=== PATIENT | male | born 1945 | race Caucasian/White ===

== ENCOUNTER 2017-09-13 03:10 | Emergency (ER) | payer MEDICARE, MEDICAID ==
[~2017-09-13] VITALS: Ht 177.8 cm; Wt 112.0 kg
[~2017-09-13 03:10] MED LIST: ASPI-611 PO; ATI1T PO; ATOR40TA71 PO; BISA-155 PO; CLON-527 PO; DIVA-81 PO; DIVA500T7 PO; DOCU250C4 PO; DOXY100C43 PO; DULR RC; FURO40TA4 PO; GEODON IM; HYDR-569 PO; IBUP-1984 PO; LISI-600 PO; LURA80TA3 PO; MAGN400O6 PO; MULT1TAB74 PO; NYSPWD TP; OLAN-1 PO; OLAN20TA16 PO; PERP4TAB11 PO; POTA8TAB8 PO; PRED10TA PO; QUET200T PO; SIME125C87 PO; TEMA30CA5 PO
[2017-09-13] MEDS ORDERED: acetaminophen 325mg tablet PO ONE (03:20)
[2017-09-13 07:59] VITALS: BP 124/76
== END 2017-09-13 07:58 | disposition home or self-care (01) ==
LOC: ER 03:11
DX: S00.03XA Contusion of scalp, initial encounter (principal); S09.90XA Unspecified injury of head, initial encounter; R60.0 Localized edema; M25.512 Pain in left shoulder; Z88.8 Allergy status to other drugs, medicaments and biological substances; Z79.82 Long term (current) use of aspirin; Z79.899 Other long term (current) drug therapy; W19.XXXA Unspecified fall, initial encounter; Y93.89 Activity, other specified; Y92.89 Other specified places as the place of occurrence of the external cause; Y99.9 Unspecified external cause status
CPT/HCPCS: 70450; 71045; 72125; 73030; 99284

== ENCOUNTER 2017-10-14 10:45 | Inpatient (IN) | payer MEDICARE, MEDICAID ==
[~2017-10-14] VITALS: Ht 175.3 cm; Wt 110.0 kg
[2017-10-14 11:20] LABS: BASOPHILS % (AUTO) 0.2 % (0-1); EOSINOPHILS # (AUTO) 0.1 X10'3 (0-0.9); EOSINOPHILS % (AUTO) 1.3 % (0-6); HEMATOCRIT 41.7 % (42.0-52.0); HEMOGLOBIN 14.1 g/dl (14.0-17.9); LYMPHOCYTES % (AUTO) 9.8 % (21-51); MEAN CORPUSCULAR HEMOGLOBIN 30.4 PG (27.0-31.0); MEAN CORPUSCULAR HGB CONC 33.9 % (33.0-36.5); MEAN CORPUSCULAR VOLUME 89.7 FL (78-98); MEAN PLATELET VOLUME 8.9 FL (7.4-10.4); MONOCYTES # (AUTO) 1.2 X10'3 (0-0.9); MONOCYTES % (AUTO) 11.7 % (2-12); NEUTROPHILS # (AUTO) 7.6 X10'3 (1.8-7.7); PLATELET COUNT 176 X10'3 (140-440); RED BLOOD COUNT 4.65 X10'6 (4.70-6.10); RED CELL DISTRIBUTION WIDTH 15.9 % (11.5-14.5); WHITE BLOOD COUNT 9.9 X10'3 (4.5-11.0)
[2017-10-14 11:41] LABS: ALANINE AMINOTRANSFERASE 22 U/L (12-78); ALBUMIN/GLOBULIN RATIO 0.8 (1.1-1.5); ALKALINE PHOSPHATASE 63 IU/L (46-116); ANION GAP 6 (8-16); ASPARTATE AMINO TRANSFERASE 19 U/L (10-37); BILIRUBIN,TOTAL 0.4 MG/DL (0.1-1.0); BLOOD UREA NITROGEN 21 MG/DL (7-18); BUN/CREATININE RATIO 24.1 (5.4-32.0); CALCIUM 8.9 MG/DL (8.5-10.1); CHLORIDE 82 MMOL/L (99-107); CREATININE 0.87 MG/DL (0.60-1.10); GLUCOSE 79 MG/DL (70-104); POTASSIUM 3.3 MMOL/L (3.5-5.1); SODIUM 125 MMOL/L (135-145); TOTAL CARBON DIOXIDE 37.1 MMOL/L (24-32); TOTAL PROTEIN 6.8 G/DL (6.4-8.2); eGFR 87 ML/MIN
[2017-10-14] MEDS ORDERED: normal saline 1000ml 1,000 ML IV ONE (11:45)
[2017-10-14] MEDS ORDERED: magnesium Cl slow-release 64mg tablet PO PRN (13:45)
[2017-10-14] MEDS ORDERED: levoFLOXACIN-Levaquin 750MG/D5 150 ML IV ONE (13:45)
[2017-10-14] MEDS ORDERED: magnesium 2GM in 50ml NS 50 ML IV PRN (13:45)
[2017-10-14] MEDS ORDERED: magnesium 4gm in 100ml NS 100 ML IV PRN (13:45)
[2017-10-14] MEDS ORDERED: potassium Cl 40MEQ/NS 500ml 500 ML IV PRN ×2 (13:45)
[2017-10-14] MEDS ORDERED: magnesium hydroxide 30ml (MOM) UD suspension PO PRN ×2 (13:45→13:50)
[2017-10-14] MEDS ORDERED: mag hydrox/Alum hydrox/simeth 30ml oral suspension PO PRN (13:45)
[2017-10-14] MEDS ORDERED: CefTRIAXone 2gm/D5W 50ml 50 ML IV ONE (13:45)
[2017-10-14] MEDS ORDERED: acetaminophen 325mg tablet PO PRN (13:45)
[2017-10-14] MEDS ORDERED: potassium Cl 20 mEq SR tablet PO PRN (13:45)
[2017-10-14] MEDS ORDERED: HYDROcodone/acetaminophen 5mg/325mg tablet PO PRN (13:50)
[2017-10-14] MEDS: normal saline 1000ml 1,000 ML IV SCH ×2 (13:58→23:42)
[2017-10-14] MEDS ORDERED: DIVA500T2 PO (14:40)
[2017-10-14] MEDS ORDERED: QUET200T PO (14:40)
[2017-10-14] MEDS ORDERED: POTA10TA19 PO (14:40)
[2017-10-14] MEDS ORDERED: OLAN5TAB5 PO (14:40)
[2017-10-14] MEDS: potassium Cl 20 mEq SR tablet PO PRN (14:56)
[2017-10-14 15:30] VITALS: BP 85/46
[2017-10-14 16:47] LABS: PARTIAL THROMBOPLASTIN TIME 27 SECONDS (22-32)
[2017-10-14 18:00] VITALS: BP 104/65
[2017-10-14] MEDS: atorvastatin 20mg tablet PO SCH (20:32)
[2017-10-14] MEDS: nystatin 15 GM powder TP SCH (20:32)
[2017-10-14] MEDS: heparin, porcine 5000 units/ml vial SQ SCH (20:33)
[2017-10-14] MEDS: lurasidone 20mg tablet PO SCH (20:33)
[2017-10-14] MEDS: quetiapine 100mg tablet PO SCH (20:33)
[2017-10-14] MEDS: docusate sod 250mg capsule PO SCH (20:33)
[2017-10-14] MEDS: lactobacillus rhamnosus 10,000 MMU CELLS/CAPSULE PO SCH (20:34)
[2017-10-14] MEDS: divalproex sod 250mg ER (24-hour) tablet PO SCH (20:58)
[2017-10-14] MEDS: olanzapine 10mg tablet PO SCH (20:59)
[2017-10-15] VITALS (9 sets, daily range): BP systolic 87–123; BP diastolic 48–77
[2017-10-15] MEDS: normal saline 1000ml 1,000 ML IV SCH ×2 (03:23→19:42)
[2017-10-15 05:13] LABS: BASOPHILS % (AUTO) 0.7 % (0-1); EOSINOPHILS % (AUTO) 0 % (0-6); HEMATOCRIT 39.4 % (42.0-52.0); HEMOGLOBIN 13.4 g/dl (14.0-17.9); LYMPHOCYTES # (AUTO) 1.2 X10'3 (1.1-4.8); MEAN CORPUSCULAR HEMOGLOBIN 30.2 PG (27.0-31.0); MEAN CORPUSCULAR VOLUME 88.8 FL (78-98); MEAN PLATELET VOLUME 9.2 FL (7.4-10.4); MONOCYTES % (AUTO) 15.1 % (2-12); NEUTROPHILS # (AUTO) 4.6 X10'3 (1.8-7.7); NEUTROPHILS % (AUTO) 66.2 % (42-75); PLATELET COUNT 189 X10'3 (140-440); RED BLOOD COUNT 4.44 X10'6 (4.70-6.10); RED CELL DISTRIBUTION WIDTH 15.7 % (11.5-14.5); WHITE BLOOD COUNT 6.9 X10'3 (4.5-11.0)
[2017-10-15 05:31] LABS: ALANINE AMINOTRANSFERASE 18 U/L (12-78); ALBUMIN 2.5 G/DL (3.4-5.0); ALBUMIN/GLOBULIN RATIO 0.7 (1.1-1.5); ALKALINE PHOSPHATASE 55 IU/L (46-116); ANION GAP 7 (8-16); ASPARTATE AMINO TRANSFERASE 16 U/L (10-37); BILIRUBIN,TOTAL 0.3 MG/DL (0.1-1.0); BLOOD UREA NITROGEN 13 MG/DL (7-18); BUN/CREATININE RATIO 20.3 (5.4-32.0); CALCIUM 8.5 MG/DL (8.5-10.1); CHLORIDE 92 MMOL/L (99-107); CREATININE 0.64 MG/DL (0.60-1.10); GLUCOSE 89 MG/DL (70-104); MAGNESIUM 1.6 MG/DL (1.5-2.4); POTASSIUM 3.8 MMOL/L (3.5-5.1); SODIUM 130 MMOL/L (135-145); TOTAL CARBON DIOXIDE 31.3 MMOL/L (24-32); TOTAL PROTEIN 6.1 G/DL (6.4-8.2); eGFR > 90 ML/MIN
[2017-10-15] MEDS: aspirin 81mg tablet.DR PO SCH (07:54)
[2017-10-15] MEDS: docusate sod 250mg capsule PO SCH ×2 (07:54→21:04)
[2017-10-15] MEDS: lactobacillus rhamnosus 10,000 MMU CELLS/CAPSULE PO SCH ×2 (07:54→21:04)
[2017-10-15] MEDS: CefTRIAXone/D5W-Rocephin 1gm 50 ML IV SCH (07:54)
[2017-10-15] MEDS: multivitamins, therapeutics tablet PO SCH (07:54)
[2017-10-15] MEDS: K and/or MAG REPLACEMENT MC SCH (08:00)
[2017-10-15] MEDS: lurasidone 20mg tablet PO SCH ×2 (08:07→21:04)
[2017-10-15] MEDS: heparin, porcine 5000 units/ml vial SQ SCH ×2 (08:07→21:05)
[2017-10-15] MEDS: prednisone 10mg tablet PO SCH (08:07)
[2017-10-15] MEDS: nystatin 15 GM powder TP SCH ×2 (08:09→21:05)
[2017-10-15] MEDS: divalproex sodium 500mg tablet.DR PO SCH (08:37)
[2017-10-15] MEDS: levoFLOXACIN-Levaquin 500mg/D5 100 ML IV SCH (08:41)
[2017-10-15] MEDS: divalproex sod 250mg ER (24-hour) tablet PO SCH (21:03)
[2017-10-15] MEDS: quetiapine 100mg tablet PO SCH (21:04)
[2017-10-15] MEDS: atorvastatin 20mg tablet PO SCH (21:04)
[2017-10-15] MEDS: olanzapine 10mg tablet PO SCH (21:04)
[2017-10-16] VITALS (8 sets, daily range): BP systolic 82–108; BP diastolic 57–72
[2017-10-16] MEDS: normal saline 1000ml 1,000 ML IV SCH ×2 (02:48→13:33)
[2017-10-16 05:39] LABS: BASOPHILS % (AUTO) 0.6 % (0-1); EOSINOPHILS # (AUTO) 0.2 X10'3 (0-0.9); EOSINOPHILS % (AUTO) 2.6 % (0-6); HEMATOCRIT 36.9 % (42.0-52.0); HEMOGLOBIN 12.4 g/dl (14.0-17.9); LYMPHOCYTES # (AUTO) 1.4 X10'3 (1.1-4.8); LYMPHOCYTES % (AUTO) 19.5 % (21-51); MEAN CORPUSCULAR HEMOGLOBIN 30.2 PG (27.0-31.0); MEAN CORPUSCULAR HGB CONC 33.7 % (33.0-36.5); MEAN CORPUSCULAR VOLUME 89.6 FL (78-98); MEAN PLATELET VOLUME 9.1 FL (7.4-10.4); MONOCYTES # (AUTO) 0.9 X10'3 (0-0.9); MONOCYTES % (AUTO) 12.4 % (2-12); NEUTROPHILS # (AUTO) 4.6 X10'3 (1.8-7.7); NEUTROPHILS % (AUTO) 64.9 % (42-75); PLATELET COUNT 180 X10'3 (140-440); RED BLOOD COUNT 4.12 X10'6 (4.70-6.10); RED CELL DISTRIBUTION WIDTH 15.1 % (11.5-14.5); WHITE BLOOD COUNT 7.1 X10'3 (4.5-11.0)
[2017-10-16 06:07] LABS: ALANINE AMINOTRANSFERASE 15 U/L (12-78); ALBUMIN 2.3 G/DL (3.4-5.0); ALBUMIN/GLOBULIN RATIO 0.7 (1.1-1.5); ALKALINE PHOSPHATASE 50 IU/L (46-116); ANION GAP 6 (8-16); ASPARTATE AMINO TRANSFERASE 15 U/L (10-37); BILIRUBIN,TOTAL 0.4 MG/DL (0.1-1.0); BLOOD UREA NITROGEN 9 MG/DL (7-18); CALCIUM 8.1 MG/DL (8.5-10.1); CHLORIDE 87 MMOL/L (99-107); CREATININE 0.53 MG/DL (0.60-1.10); GLUCOSE 99 MG/DL (70-104); MAGNESIUM 1.5 MG/DL (1.5-2.4); POTASSIUM 3.2 MMOL/L (3.5-5.1); SODIUM 125 MMOL/L (135-145); TOTAL CARBON DIOXIDE 32.5 MMOL/L (24-32); TOTAL PROTEIN 5.5 G/DL (6.4-8.2); eGFR > 90 ML/MIN
[2017-10-16] MEDS: ondansetron/PF 4mg/2ml inj IV PRN (07:48)
[2017-10-16] MEDS: K and/or MAG REPLACEMENT MC SCH (08:00)
[2017-10-16] MEDS: levoFLOXACIN-Levaquin 500mg/D5 100 ML IV SCH (08:03)
[2017-10-16] MEDS: docusate sod 250mg capsule PO SCH ×2 (08:43→20:43)
[2017-10-16] MEDS: lactobacillus rhamnosus 10,000 MMU CELLS/CAPSULE PO SCH ×2 (08:44→20:43)
[2017-10-16] MEDS: divalproex sodium 500mg tablet.DR PO SCH (08:45)
[2017-10-16] MEDS: aspirin 81mg tablet.DR PO SCH (08:46)
[2017-10-16] MEDS: lurasidone 20mg tablet PO SCH ×2 (08:47→20:44)
[2017-10-16] MEDS: prednisone 10mg tablet PO SCH (08:48)
[2017-10-16] MEDS: multivitamins, therapeutics tablet PO SCH (08:49)
[2017-10-16] MEDS: potassium Cl 20 mEq SR tablet PO PRN ×3 (08:50→18:20)
[2017-10-16] MEDS: heparin, porcine 5000 units/ml vial SQ SCH ×2 (08:53→20:45)
[2017-10-16] MEDS: CefTRIAXone/D5W-Rocephin 1gm 50 ML IV SCH (09:39)
[2017-10-16] MEDS: nystatin 15 GM powder TP SCH ×2 (09:42→20:45)
[2017-10-16] MEDS: divalproex sod 250mg ER (24-hour) tablet PO SCH (20:45)
[2017-10-16] MEDS: atorvastatin 20mg tablet PO SCH (20:46)
[2017-10-16] MEDS: olanzapine 10mg tablet PO SCH (20:46)
[2017-10-16] MEDS: quetiapine 100mg tablet PO SCH (20:46)
[2017-10-17] MEDS: normal saline 1000ml 1,000 ML IV SCH ×3 (01:42→21:42)
[2017-10-17 05:48] LABS: BASOPHILS % (AUTO) 0.6 % (0-1); EOSINOPHILS # (AUTO) 0.2 X10'3 (0-0.9); EOSINOPHILS % (AUTO) 3.2 % (0-6); HEMATOCRIT 36.6 % (42.0-52.0); HEMOGLOBIN 12.5 g/dl (14.0-17.9); LYMPHOCYTES # (AUTO) 1.2 X10'3 (1.1-4.8); LYMPHOCYTES % (AUTO) 17.2 % (21-51); MEAN CORPUSCULAR HEMOGLOBIN 30.6 PG (27.0-31.0); MEAN CORPUSCULAR HGB CONC 34.2 % (33.0-36.5); MEAN CORPUSCULAR VOLUME 89.4 FL (78-98); MEAN PLATELET VOLUME 9.2 FL (7.4-10.4); MONOCYTES # (AUTO) 0.8 X10'3 (0-0.9); NEUTROPHILS # (AUTO) 4.6 X10'3 (1.8-7.7); PLATELET COUNT 186 X10'3 (140-440); RED BLOOD COUNT 4.09 X10'6 (4.70-6.10); RED CELL DISTRIBUTION WIDTH 15.9 % (11.5-14.5); WHITE BLOOD COUNT 6.9 X10'3 (4.5-11.0)
[2017-10-17 06:03] LABS: ALANINE AMINOTRANSFERASE 17 U/L (12-78); ALBUMIN 2.3 G/DL (3.4-5.0); ALBUMIN/GLOBULIN RATIO 0.7 (1.1-1.5); ALKALINE PHOSPHATASE 47 IU/L (46-116); ANION GAP 4 (8-16); ASPARTATE AMINO TRANSFERASE 14 U/L (10-37); BILIRUBIN,TOTAL 0.3 MG/DL (0.1-1.0); BLOOD UREA NITROGEN 11 MG/DL (7-18); CALCIUM 8.4 MG/DL (8.5-10.1); CHLORIDE 93 MMOL/L (99-107); GLUCOSE 98 MG/DL (70-104); MAGNESIUM 1.4 MG/DL (1.5-2.4); POTASSIUM 4.1 MMOL/L (3.5-5.1); SODIUM 128 MMOL/L (135-145); TOTAL CARBON DIOXIDE 30.9 MMOL/L (24-32); TOTAL PROTEIN 5.7 G/DL (6.4-8.2); eGFR > 90 ML/MIN
[2017-10-17] MEDS: CefTRIAXone/D5W-Rocephin 1gm 50 ML IV SCH (07:48)
[2017-10-17] MEDS: aspirin 81mg tablet.DR PO SCH (07:49)
[2017-10-17] MEDS: multivitamins, therapeutics tablet PO SCH (07:49)
[2017-10-17] MEDS: lactobacillus rhamnosus 10,000 MMU CELLS/CAPSULE PO SCH ×2 (07:49→21:47)
[2017-10-17] MEDS: docusate sod 250mg capsule PO SCH ×2 (07:49→20:00)
[2017-10-17] MEDS: prednisone 10mg tablet PO SCH (07:49)
[2017-10-17] MEDS: heparin, porcine 5000 units/ml vial SQ SCH ×2 (07:50→21:45)
[2017-10-17] MEDS: nystatin 15 GM powder TP SCH ×2 (07:51→21:49)
[2017-10-17] MEDS: lurasidone 20mg tablet PO SCH ×2 (07:57→21:49)
[2017-10-17] MEDS: divalproex sodium 500mg tablet.DR PO SCH (07:57)
[2017-10-17 08:00] VITALS: BP_SYST 104; BP_SYST 105; BP_SYST 96; BP_DIAS 68; BP_DIAS 70; BP_DIAS 72
[2017-10-17] MEDS: K and/or MAG REPLACEMENT MC SCH (08:16)
[2017-10-17] MEDS: levoFLOXACIN 500mg tablet PO SCH (11:31)
[2017-10-17 12:16] VITALS: BP 130/75
[2017-10-17 18:00] VITALS: BP 121/68
[2017-10-17 20:00] VITALS: BP_SYST 107; BP_SYST 111; BP_SYST 121; BP_DIAS 62; BP_DIAS 66; BP_DIAS 68
[2017-10-17] MEDS ORDERED: potassium Cl 40MEQ/NS 500ml 500 ML IV PRN ×2 (20:55)
[2017-10-17] MEDS ORDERED: potassium Cl 20 mEq SR tablet PO PRN ×2 (20:55)
[2017-10-17] MEDS ORDERED: magnesium 4gm in 100ml NS 100 ML IV PRN (20:55)
[2017-10-17] MEDS ORDERED: magnesium 2GM in 50ml NS 50 ML IV PRN (20:55)
[2017-10-17] MEDS: ondansetron/PF 4mg/2ml inj IV PRN (21:41)
[2017-10-17] MEDS: quetiapine 100mg tablet PO SCH (21:46)
[2017-10-17] MEDS: magnesium Cl slow-release 64mg tablet PO PRN (21:47)
[2017-10-17] MEDS: atorvastatin 20mg tablet PO SCH (21:47)
[2017-10-17] MEDS: olanzapine 10mg tablet PO SCH (21:48)
[2017-10-17] MEDS: divalproex sod 250mg ER (24-hour) tablet PO SCH (21:48)
[2017-10-18] VITALS: BP 112/73
[2017-10-18] MEDS: normal saline 1000ml 1,000 ML IV SCH (01:44)
[2017-10-18] MEDS: ondansetron/PF 4mg/2ml inj IV PRN (04:44)
[2017-10-18 05:20] LABS: BASOPHILS % (AUTO) 0.4 % (0-1); EOSINOPHILS # (AUTO) 0.2 X10'3 (0-0.9); HEMOGLOBIN 13.6 g/dl (14.0-17.9); LYMPHOCYTES # (AUTO) 0.9 X10'3 (1.1-4.8); LYMPHOCYTES % (AUTO) 11.6 % (21-51); MEAN CORPUSCULAR HEMOGLOBIN 30.9 PG (27.0-31.0); MEAN CORPUSCULAR HGB CONC 34.8 % (33.0-36.5); MEAN CORPUSCULAR VOLUME 88.8 FL (78-98); MEAN PLATELET VOLUME 8.7 FL (7.4-10.4); MONOCYTES # (AUTO) 0.7 X10'3 (0-0.9); MONOCYTES % (AUTO) 8.8 % (2-12); NEUTROPHILS # (AUTO) 5.8 X10'3 (1.8-7.7); NEUTROPHILS % (AUTO) 76.2 % (42-75); PLATELET COUNT 197 X10'3 (140-440); RED BLOOD COUNT 4.39 X10'6 (4.70-6.10); WHITE BLOOD COUNT 7.6 X10'3 (4.5-11.0)
[2017-10-18 05:40] LABS: ALANINE AMINOTRANSFERASE 16 U/L (12-78); ALBUMIN 2.5 G/DL (3.4-5.0); ALBUMIN/GLOBULIN RATIO 0.7 (1.1-1.5); ALKALINE PHOSPHATASE 55 IU/L (46-116); ANION GAP 4 (8-16); ASPARTATE AMINO TRANSFERASE 15 U/L (10-37); BILIRUBIN,TOTAL 0.4 MG/DL (0.1-1.0); BLOOD UREA NITROGEN 7 MG/DL (7-18); BUN/CREATININE RATIO 14.6 (5.4-32.0); CALCIUM 8.3 MG/DL (8.5-10.1); CHLORIDE 85 MMOL/L (99-107); CREATININE 0.48 MG/DL (0.60-1.10); GLUCOSE 104 MG/DL (70-104); MAGNESIUM 1.4 MG/DL (1.5-2.4); POTASSIUM 4.1 MMOL/L (3.5-5.1); TOTAL CARBON DIOXIDE 28.9 MMOL/L (24-32); TOTAL PROTEIN 6.1 G/DL (6.4-8.2); eGFR > 90 ML/MIN
[2017-10-18 06:46] LABS: SODIUM 118 MMOL/L (135-145)
[2017-10-18 07:00] VITALS: BP_SYST 114; BP_SYST 120; BP_DIAS 66; BP_DIAS 69
[2017-10-18 07:10] VITALS: BP 118/75
[2017-10-18] MEDS: K and/or MAG REPLACEMENT MC SCH (08:00)
[2017-10-18] MEDS: CefTRIAXone/D5W-Rocephin 1gm 50 ML IV SCH (08:11)
[2017-10-18] MEDS: nystatin 15 GM powder TP SCH ×2 (08:12→22:42)
[2017-10-18] MEDS: lurasidone 20mg tablet PO SCH ×2 (08:12→22:35)
[2017-10-18] MEDS: heparin, porcine 5000 units/ml vial SQ SCH ×2 (08:13→20:00)
[2017-10-18] MEDS: docusate sod 250mg capsule PO SCH ×2 (08:13→20:00)
[2017-10-18] MEDS: lactobacillus rhamnosus 10,000 MMU CELLS/CAPSULE PO SCH ×2 (08:13→22:33)
[2017-10-18] MEDS: aspirin 81mg tablet.DR PO SCH (08:13)
[2017-10-18] MEDS: divalproex sodium 500mg tablet.DR PO SCH (08:13)
[2017-10-18] MEDS: multivitamins, therapeutics tablet PO SCH (08:13)
[2017-10-18] MEDS: prednisone 10mg tablet PO SCH (08:13)
[2017-10-18] MEDS: magnesium Cl slow-release 64mg tablet PO PRN (08:13)
[2017-10-18 09:54] LABS: ALBUMIN 2.3 G/DL (3.4-5.0); ANION GAP 3 (8-16); BLOOD UREA NITROGEN 8 MG/DL (7-18); BUN/CREATININE RATIO 17.4 (5.4-32.0); CALCIUM 8.2 MG/DL (8.5-10.1); CHLORIDE 86 MMOL/L (99-107); CREATININE 0.46 MG/DL (0.60-1.10); GLUCOSE 122 MG/DL (70-104); TOTAL CARBON DIOXIDE 29.7 MMOL/L (24-32); eGFR > 90 ML/MIN
[2017-10-18 10:11] LABS: SODIUM 119 MMOL/L (135-145)
[2017-10-18 11:00] VITALS: BP 111/67
[2017-10-18] MEDS: levoFLOXACIN 500mg tablet PO SCH (12:02)
[2017-10-18] MEDS ORDERED: normal saline 1000ml 1,000 ML IV ONE (12:40)
[2017-10-18 18:30] VITALS: BP 115/49
[2017-10-18] MEDS: olanzapine 10mg tablet PO SCH (21:00)
[2017-10-18] MEDS: divalproex sod 250mg ER (24-hour) tablet PO SCH (22:37)
[2017-10-18] MEDS: quetiapine 100mg tablet PO SCH (22:38)
[2017-10-18] MEDS: atorvastatin 20mg tablet PO SCH (22:39)
[2017-10-19] VITALS: BP_SYST 105; BP_SYST 108; BP_SYST 109; BP_DIAS 58; BP_DIAS 61; BP_DIAS 65
[2017-10-19 06:07] LABS: BASOPHILS % (AUTO) 0.7 % (0-1); EOSINOPHILS % (AUTO) 0 % (0-6); HEMATOCRIT 36.8 % (42.0-52.0); HEMOGLOBIN 12.6 g/dl (14.0-17.9); LYMPHOCYTES # (AUTO) 0.9 X10'3 (1.1-4.8); LYMPHOCYTES % (AUTO) 13.6 % (21-51); MEAN CORPUSCULAR HEMOGLOBIN 30.4 PG (27.0-31.0); MEAN CORPUSCULAR HGB CONC 34.1 % (33.0-36.5); MEAN CORPUSCULAR VOLUME 89.1 FL (78-98); MEAN PLATELET VOLUME 8.8 FL (7.4-10.4); MONOCYTES # (AUTO) 0.9 X10'3 (0-0.9); MONOCYTES % (AUTO) 14.7 % (2-12); NEUTROPHILS # (AUTO) 4.6 X10'3 (1.8-7.7); PLATELET COUNT 183 X10'3 (140-440); RED BLOOD COUNT 4.13 X10'6 (4.70-6.10); RED CELL DISTRIBUTION WIDTH 15.4 % (11.5-14.5); WHITE BLOOD COUNT 6.4 X10'3 (4.5-11.0)
[2017-10-19 06:23] LABS: ALANINE AMINOTRANSFERASE 14 U/L (12-78); ALBUMIN 2.4 G/DL (3.4-5.0); ALBUMIN/GLOBULIN RATIO 0.8 (1.1-1.5); ALKALINE PHOSPHATASE 48 IU/L (46-116); ANION GAP 4 (8-16); ASPARTATE AMINO TRANSFERASE 12 U/L (10-37); BILIRUBIN,TOTAL 0.3 MG/DL (0.1-1.0); BLOOD UREA NITROGEN 9 MG/DL (7-18); BUN/CREATININE RATIO 17.6 (5.4-32.0); CALCIUM 8.4 MG/DL (8.5-10.1); CHLORIDE 96 MMOL/L (99-107); CREATININE 0.51 MG/DL (0.60-1.10); GLUCOSE 94 MG/DL (70-104); MAGNESIUM 1.7 MG/DL (1.5-2.4); SODIUM 129 MMOL/L (135-145); TOTAL CARBON DIOXIDE 29.1 MMOL/L (24-32); TOTAL PROTEIN 5.6 G/DL (6.4-8.2); eGFR > 90 ML/MIN
[2017-10-19 07:01] VITALS: BP 119/79
[2017-10-19 07:09] VITALS: BP 119/79
[2017-10-19] MEDS: K and/or MAG REPLACEMENT MC SCH (08:00)
[2017-10-19] MEDS: multivitamins, therapeutics tablet PO SCH (08:03)
[2017-10-19] MEDS: aspirin 81mg tablet.DR PO SCH (08:03)
[2017-10-19] MEDS: prednisone 10mg tablet PO SCH (08:03)
[2017-10-19] MEDS: lactobacillus rhamnosus 10,000 MMU CELLS/CAPSULE PO SCH (08:03)
[2017-10-19] MEDS: divalproex sodium 500mg tablet.DR PO SCH (08:03)
[2017-10-19] MEDS: docusate sod 250mg capsule PO SCH (08:03)
[2017-10-19] MEDS: lurasidone 20mg tablet PO SCH (08:04)
[2017-10-19] MEDS: heparin, porcine 5000 units/ml vial SQ SCH (08:04)
[2017-10-19] MEDS: nystatin 15 GM powder TP SCH (08:04)
[2017-10-19] MEDS: CefTRIAXone/D5W-Rocephin 1gm 50 ML IV SCH (08:07)
[2017-10-19] MEDS ORDERED: PRED10TA PO (08:14)
[2017-10-19] MEDS ORDERED: FURO20TA4 PO (08:14)
[2017-10-19] MEDS ORDERED: QUET100T33 PO (08:31)
[2017-10-19] MEDS ORDERED: CEFP200T13 PO (10:14)
[2017-10-19] MEDS: levoFLOXACIN 500mg tablet PO SCH (10:34)
[2017-10-19 12:26] VITALS: BP 98/62
== END 2017-10-19 16:39 | DRG 194 ==
LOC: ER 10:45 → SUR 3N 13:42
PROVIDERS: ADMIT Internal Medicine; ATTEND Internal Medicine
DX: J18.1 Lobar pneumonia, unspecified organism (principal); E44.1 Mild protein-calorie malnutrition; I95.9 Hypotension, unspecified; E87.1 Hypo-osmolality and hyponatremia; I48.2 Chronic atrial fibrillation; Z99.81 Dependence on supplemental oxygen; F20.9 Schizophrenia, unspecified; E86.0 Dehydration; M25.512 Pain in left shoulder; F31.9 Bipolar disorder, unspecified; E78.00 Pure hypercholesterolemia, unspecified; G47.30 Sleep apnea, unspecified; G89.29 Other chronic pain; I10 Essential (primary) hypertension; I25.10 Atherosclerotic heart disease of native coronary artery without angina pectoris; I25.2 Old myocardial infarction; Z88.8 Allergy status to other drugs, medicaments and biological substances; Z79.82 Long term (current) use of aspirin; Z79.899 Other long term (current) drug therapy; S42.292D Other displaced fracture of upper end of left humerus, subsequent encounter for fracture with routine healing; Z68.35 Body mass index [BMI] 35.0-35.9, adult
CPT/HCPCS: 36415; 71045; 73030; 73200; 80048; 80053; 80164; 82948; 83605; 83735; 84145; 84295; 84484; 85025; 85610; 85730; 87040; 87070; 93005; 93306; 96360; 97110; 97116; 97162; 97530; 99291; A6258; J0696; J1644; J1956; J2405; J3490; J7030; J7512

== ENCOUNTER 2021-06-29 16:14 | Inpatient (IN) | payer MEDICARE, MEDICAID ==
[~2021-06-29] VITALS: Ht 172.7 cm; Wt 126.0 kg
[~2021-06-29 16:14] MED LIST changes: -CLON-527 PO; +DIVA-76 PO; +DIVA500T2 PO; -DIVA500T7 PO; -DOCU250C4 PO; +DOCU250C96 PO; -DOXY100C43 PO; +FURO20TA4 PO; -FURO40TA4 PO; +HYDR-4383 PO; -HYDR-569 PO; -LISI-600 PO; +LISI20TA28 PO; +MULT-620 PO; -MULT1TAB74 PO; -OLAN-1 PO; -OLAN20TA16 PO; -PERP4TAB11 PO; +POTA-192 PO; -POTA8TAB8 PO; +QUET100T34 PO; -QUET200T PO; -SIME125C87 PO; +SIME125C97 PO
[2021-06-29 16:36] LABS: BASOPHILS # (AUTO) 0.1 X10'3 (0-0.2); BASOPHILS % (AUTO) 0.5 % (0-1); EOSINOPHILS % (AUTO) 0.2 % (0-6); HEMOGLOBIN 13.5 g/dl (14.0-17.9); LYMPHOCYTES # (AUTO) 0.6 X10'3 (1.1-4.8); LYMPHOCYTES % (AUTO) 3.5 % (21-51); MEAN CORPUSCULAR HEMOGLOBIN 29.2 PG (27.0-31.0); MEAN CORPUSCULAR HGB CONC 32.8 g/dL (33.0-36.5); MEAN CORPUSCULAR VOLUME 88.8 FL (78-98); MEAN PLATELET VOLUME 8.5 FL (7.4-10.4); MONOCYTES # (AUTO) 1.4 X10'3 (0-0.9); MONOCYTES % (AUTO) 8.3 % (2-12); NEUTROPHILS % (AUTO) 87.5 % (42-75); PLATELET COUNT 219 X10'3 (140-440); RED BLOOD COUNT 4.62 X10'6 (4.70-6.10); RED CELL DISTRIBUTION WIDTH 15.4 % (11.5-14.5); WHITE BLOOD COUNT 17.2 X10'3 (4.5-11.0)
[2021-06-29 16:47] LABS: ALANINE AMINOTRANSFERASE 46 U/L (12-78); ALBUMIN 2.5 G/DL (3.4-5.0); ALBUMIN/GLOBULIN RATIO 0.5 (1.1-1.5); ALKALINE PHOSPHATASE 88 IU/L (46-116); ANION GAP 8 (8-16); ASPARTATE AMINO TRANSFERASE 39 U/L (10-37); BILIRUBIN,TOTAL 0.3 MG/DL (0.1-1.0); BLOOD UREA NITROGEN 14 MG/DL (7-18); BUN/CREATININE RATIO 12.7 (5.4-32.0); CALCIUM 9.1 MG/DL (8.5-10.1); CHLORIDE 98 MMOL/L (99-107); GLUCOSE 114 MG/DL (70-104); POTASSIUM 3.8 MMOL/L (3.5-5.1); SODIUM 138 MMOL/L (135-145); TOTAL PROTEIN 7.7 G/DL (6.4-8.2); eGFR 66 ML/MIN
[2021-06-29] MEDS ORDERED: normal saline 1000ML IV soln IV ONE (17:15)
[2021-06-29] MEDS ORDERED: CefTRIAXone 2gm/D5W 50ml BAG 50 ML IV ONE (17:15)
[2021-06-29] MEDS ORDERED: azithromycin/NS 500mg/250ml 250 ML IV ONE (17:15)
[2021-06-29] MEDS ORDERED: acetaminophen 325mg tablet PO STA (17:25)
[2021-06-29] MEDS ORDERED: ipratropium/albuterol 3ml nebule NEB ONE (17:25)
[2021-06-29] MEDS ORDERED: methylPREDNISolone sod succ 125mg/2ml vial IV ONE (17:25)
[2021-06-29] MEDS ORDERED: ipratropium/albuterol 3ml nebule ONE (19:05)
[2021-06-29] MEDS ORDERED: ondansetron/PF 4mg/2ml inj IV PRN (20:30)
[2021-06-29] MEDS ORDERED: mag hydrox/Alum hydrox/simeth 30ml oral suspension PO PRN (20:30)
[2021-06-29] MEDS ORDERED: morphine 2 MG/ML inj. syringe IV PRN ×2 (20:30)
[2021-06-29] MEDS ORDERED: diphenhydrAMINE 25mg capsule PO PRN (20:30)
[2021-06-29] MEDS ORDERED: magnesium hydroxide 30ml (MOM) UD suspension PO PRN (20:30)
[2021-06-29] MEDS ORDERED: bisacodyl 10mg suppository rectal RC PRN (20:30)
[2021-06-29] MEDS ORDERED: diphenhydrAMINE 50 mg/ml inj IV PRN (20:30)
[2021-06-29] MEDS ORDERED: acetaminophen 650mg rectal suppository RC PRN (20:30)
[2021-06-29] MEDS ORDERED: acetaminophen 325mg tablet PO PRN ×2 (20:30)
[2021-06-29] MEDS ORDERED: ondansetron 4mg rapidly disintigrating tab PO PRN (20:30)
[2021-06-29] MEDS ORDERED: HYDROcodone/acetaminophen 5mg/325mg tablet PO PRN (20:30)
[2021-06-29] MEDS ORDERED: HYDROcodone/acetaminophen 10/325mg tab PO PRN (20:30)
[2021-06-29] MEDS ORDERED: temazepam 15mg capsule PO PRN (21:00)
[2021-06-29 21:07] LABS: HEMOGLOBIN A1C 5.9 % (4.5-6.2)
[2021-06-29 21:16] LABS: CREATINE KINASE 51 U/L (39-308); LIPASE < 50 U/L (73-393); MAGNESIUM 1.8 MG/DL (1.5-2.4)
[2021-06-29 21:25] LABS: VALPROATE < 3.0 UG/ML (50-100)
[2021-06-29 23:22] LABS: APTT 28 SECONDS (22-32)
[2021-06-30] VITALS (7 sets, daily range): BP systolic 100–136; BP diastolic 54–68
[2021-06-30 04:13] LABS: EOSINOPHILS % (AUTO) 0 % (0-6); LYMPHOCYTES # (AUTO) 0.3 X10'3 (1.1-4.8); MONOCYTES # (AUTO) 0.2 X10'3 (0-0.9); PLATELET COUNT 212 X10'3 (140-440)
[2021-06-30 04:14] LABS: BASOPHILS % (AUTO) 0.1 % (0-1); HEMATOCRIT 42.3 % (42.0-52.0); HEMOGLOBIN 13.9 g/dl (14.0-17.9); MEAN CORPUSCULAR HEMOGLOBIN 29.4 PG (27.0-31.0); MEAN CORPUSCULAR HGB CONC 32.8 g/dL (33.0-36.5); MEAN CORPUSCULAR VOLUME 89.7 FL (78-98); MEAN PLATELET VOLUME 8.7 FL (7.4-10.4); MONOCYTES % (AUTO) 1.6 % (2-12); NEUTROPHILS # (AUTO) 14.3 X10'3 (1.8-7.7); NEUTROPHILS % (AUTO) 96.3 % (42-75); RED BLOOD COUNT 4.71 X10'6 (4.70-6.10); RED CELL DISTRIBUTION WIDTH 15.7 % (11.5-14.5); WHITE BLOOD COUNT 14.9 X10'3 (4.5-11.0)
[2021-06-30 04:19] LABS: ALANINE AMINOTRANSFERASE 43 U/L (12-78); ALBUMIN/GLOBULIN RATIO 0.4 (1.1-1.5); ALKALINE PHOSPHATASE 80 IU/L (46-116); ANION GAP 11 (8-16); BILIRUBIN,TOTAL 0.3 MG/DL (0.1-1.0); BLOOD UREA NITROGEN 14 MG/DL (7-18); BUN/CREATININE RATIO 18.7 (5.4-32.0); CALCIUM 8.7 MG/DL (8.5-10.1); CHLORIDE 104 MMOL/L (99-107); CREATININE 0.75 MG/DL (0.60-1.10); GLUCOSE 135 MG/DL (70-104); SODIUM 142 MMOL/L (135-145); TOTAL CARBON DIOXIDE 26.9 MMOL/L (24-32); TOTAL PROTEIN 7.3 G/DL (6.4-8.2); eGFR > 90 ML/MIN
[2021-06-30 04:22] LABS: ASPARTATE AMINO TRANSFERASE 49 U/L (10-37); CHOLESTEROL 110 MG/DL (0-200); HDL CHOLESTEROL 37 MG/DL (35-60); LDL CHOLESTEROL 57 MG/DL (50-100); POTASSIUM 4.7 MMOL/L (3.5-5.1); TRIGLYCERIDES 35 MG/DL (20-135)
--- NOTE | 2021-06-30 05:00 | NUR ---
Pt resting most of the time. Arousable to shaking and calling his name. When awake he rambles non-stop and is unable to answer any questions. I was unable to obtain a history from him.
[2021-06-30] MEDS: normal saline 1000ml 1,000 ML IV SCH (05:29)
--- NOTE | 2021-06-30 06:46 | NUR ---
Patient in room PCU 3023. I have received report from YUNG Estrella and had the opportunity to ask questions and assume patient care.
--- NOTE | 2021-06-30 07:00 | NUR ---
Change of shift report given to Mariella IEYR Addendum: 06/30/21 at 0750 by Delores Gomez RN Amended: Links added.
[2021-06-30] MEDS: nystatin 15 GM powder TP SCH ×4 (08:00→20:37)
[2021-06-30] MEDS ORDERED: enoxaparin 40mg/0.4ml syringe SUBCUT SCH (08:00)
[2021-06-30] MEDS: furosemide 20 MG/2 ML vial IV SCH (09:09)
[2021-06-30] MEDS: pantoprazole 40mg Tablet.DR PO SCH (09:09)
[2021-06-30] MEDS: docusate sod 100mg capsule PO SCH ×2 (09:09→20:32)
[2021-06-30] MEDS ORDERED: bisacodyl 10mg suppository rectal RC PRN (10:40)
[2021-06-30] MEDS ORDERED: HYDROcodone/acetaminophen 5mg/325mg tablet PO PRN (10:40)
[2021-06-30] MEDS ORDERED: LORazepam 1 MG tablet PO PRN (10:40)
[2021-06-30] MEDS ORDERED: GEODON IM PRN (10:40)
[2021-06-30] MEDS ORDERED: magnesium hydroxide 30ml (MOM) UD suspension PO PRN (10:40)
[2021-06-30] MEDS ORDERED: MULT-1085 PO (11:36)
[2021-06-30] MEDS ORDERED: PYRI-3 PO (11:36)
[2021-06-30] MEDS ORDERED: SPIR25TA5 PO (11:36)
[2021-06-30] MEDS ORDERED: OLAN10TA73 PO (11:36)
[2021-06-30] MEDS ORDERED: RISP1TAB13 PO (11:36)
[2021-06-30] MEDS ORDERED: ATOR40TA7 PO (11:36)
[2021-06-30] MEDS ORDERED: ASPI-611 PO (11:36)
[2021-06-30] MEDS ORDERED: HYDR-3965 PO (11:36)
[2021-06-30] MEDS ORDERED: OLAN5TAB29 PO (11:36)
[2021-06-30] MEDS ORDERED: LEVE10006 PO (11:36)
[2021-06-30] MEDS ORDERED: SENN-263 PO (11:36)
[2021-06-30] MEDS ORDERED: LURA80TA3 PO (11:36)
[2021-06-30] MEDS ORDERED: POLY17PO59 PO (11:36)
[2021-06-30] MEDS ORDERED: SIME80TA16 PO (11:36)
[2021-06-30] MEDS ORDERED: FLO0.4C PO (11:36)
[2021-06-30] MEDS ORDERED: AMIO200T27 PO (11:36)
[2021-06-30] MEDS ORDERED: POTASSIUM CHLORIDE 16 MEQ PO SCH (13:00)
[2021-06-30] MEDS ORDERED: ipratropium/albuterol 3ml nebule NEB PRN (16:30)
[2021-06-30] MEDS: azithromycin/NS 500mg/250ml 250 ML IV SCH (17:05)
--- NOTE | 2021-06-30 18:27 | NUR ---
Problems reprioritized. Patient report given, questions answered & plan of care reviewed with YUNG Meek.
[2021-06-30] MEDS: ipratropium/albuterol 3ml nebule NEB SCH ×2 (19:35→23:05)
[2021-06-30] MEDS ORDERED: furosemide 20MG tablet PO SCH (20:00)
[2021-06-30] MEDS ORDERED: docusate sod 250mg capsule PO SCH (20:00)
[2021-06-30] MEDS ORDERED: nystatin 15 GM powder TP SCH (20:00)
[2021-06-30] MEDS ORDERED: SIMETHICONE 125 MG CAPSULE PO SCH (20:00)
[2021-06-30] MEDS ORDERED: non-formulary drug (Lurasidone HCl (Latuda) 1 TAB) PO SCH (20:00)
[2021-06-30] MEDS: methylPREDNISolone sod succ 125mg/2ml vial IV SCH (20:30)
[2021-06-30] MEDS: lactobacillus rhamnosus 10,000 MMU CELLS/CAPSULE PO SCH (20:33)
[2021-06-30] MEDS: levetiracetam 250mg tablet PO SCH (20:33)
[2021-06-30] MEDS: simethicone 80mg chew tab PO SCH (20:34)
[2021-06-30] MEDS: risperiDONE 0.5mg tablet PO SCH (20:34)
[2021-06-30] MEDS: enoxaparin 40mg/0.4ml syringe SUBCUT SCH (20:36)
[2021-06-30] MEDS: enoxaparin 80mg/0.8ml syringe SUBCUT SCH (20:36)
[2021-06-30] MEDS: olanzapine 10mg tablet PO SCH (20:38)
[2021-06-30] MEDS: sennosides 8.6mg tablet PO SCH (20:38)
[2021-06-30] MEDS ORDERED: divalproex sod 250mg ER (24-hour) tablet PO SCH (21:00)
[2021-06-30] MEDS ORDERED: quetiapine 100mg tablet PO SCH (21:00)
[2021-06-30] MEDS ORDERED: non-formulary drug (Temazepam* (Restoril*) 1 CAP) PO SCH (21:00)
[2021-06-30] MEDS: CefTRIAXone/D5W-Rocephin 1gm 50 ML IV SCH (21:48)
[2021-07-01 02:00] VITALS: BP 102/50
[2021-07-01] MEDS: methylPREDNISolone sod succ 125mg/2ml vial IV SCH ×4 (02:25→21:14)
[2021-07-01] MEDS: ipratropium/albuterol 3ml nebule NEB SCH ×2 (03:02→07:00)
[2021-07-01 06:00] VITALS: BP 121/68
--- NOTE | 2021-07-01 06:23 | NUR ---
Problems reprioritized. Patient report given, questions answered & plan of care reviewed with
--- NOTE | 2021-07-01 06:48 | NUR ---
Patient in room PCU 3021. I have received report from Gaviota IYER and had the opportunity to ask questions and assume patient care.
[2021-07-01] MEDS: polyethylene glycol 3350 17gm powd pack PO SCH (07:35)
[2021-07-01] MEDS: nystatin 15 GM powder TP SCH ×2 (07:35→21:17)
[2021-07-01] MEDS: furosemide 20 MG/2 ML vial IV SCH (07:36)
[2021-07-01] MEDS: atorvastatin 20mg tablet PO SCH (07:36)
[2021-07-01] MEDS: simethicone 80mg chew tab PO SCH ×2 (07:36→21:10)
[2021-07-01] MEDS: aspirin 81mg, enteric-coated 1 TAB TABLET.DR PO SCH (07:36)
[2021-07-01] MEDS: lactobacillus rhamnosus 10,000 MMU CELLS/CAPSULE PO SCH ×2 (07:37→21:10)
[2021-07-01] MEDS: pantoprazole 40mg Tablet.DR PO SCH (07:37)
[2021-07-01] MEDS: multivitamins, therapeutics tablet PO SCH (07:37)
[2021-07-01] MEDS: risperiDONE 0.5mg tablet PO SCH ×2 (07:37→21:10)
[2021-07-01] MEDS: amiodarone 200mg tablet PO SCH (07:37)
[2021-07-01] MEDS: levetiracetam 250mg tablet PO SCH ×2 (07:37→21:09)
[2021-07-01] MEDS: docusate sod 100mg capsule PO SCH ×2 (07:37→21:10)
[2021-07-01] MEDS: spironolactone 25 MG tablet PO SCH (07:38)
[2021-07-01] MEDS: tamsulosin 0.4mg capsule PO SCH (07:38)
[2021-07-01] MEDS: enoxaparin 80mg/0.8ml syringe SUBCUT SCH ×2 (07:39→21:16)
[2021-07-01] MEDS: enoxaparin 40mg/0.4ml syringe SUBCUT SCH ×2 (07:40→21:17)
[2021-07-01 07:56] LABS: BASOPHILS % (AUTO) 0.3 % (0-1); EOSINOPHILS % (AUTO) 0 % (0-6); HEMATOCRIT 43.7 % (42.0-52.0); HEMOGLOBIN 14.5 g/dl (14.0-17.9); LYMPHOCYTES # (AUTO) 0.4 X10'3 (1.1-4.8); LYMPHOCYTES % (AUTO) 3.2 % (21-51); MEAN CORPUSCULAR HEMOGLOBIN 29.2 PG (27.0-31.0); MEAN CORPUSCULAR HGB CONC 33.1 g/dL (33.0-36.5); MEAN CORPUSCULAR VOLUME 88.2 FL (78-98); MEAN PLATELET VOLUME 8.6 FL (7.4-10.4); MONOCYTES # (AUTO) 0.3 X10'3 (0-0.9); MONOCYTES % (AUTO) 2.6 % (2-12); NEUTROPHILS # (AUTO) 10.5 X10'3 (1.8-7.7); NEUTROPHILS % (AUTO) 93.9 % (42-75); PLATELET COUNT 293 X10'3 (140-440); RED BLOOD COUNT 4.96 X10'6 (4.70-6.10); RED CELL DISTRIBUTION WIDTH 15.8 % (11.5-14.5); WHITE BLOOD COUNT 11.2 X10'3 (4.5-11.0)
[2021-07-01] MEDS ORDERED: HYDROcodone/acetaminophen 5mg/325mg tablet PO SCH (08:00)
[2021-07-01] MEDS ORDERED: non-formulary drug (Multivitamins 1 TAB) PO SCH (08:00)
[2021-07-01] MEDS ORDERED: lisinopril 20mg tablet PO SCH (08:00)
[2021-07-01] MEDS ORDERED: divalproex sodium 500mg tablet.DR PO SCH (08:00)
[2021-07-01] MEDS ORDERED: non-formulary drug (Aspirin (Aspir 81) 1 TAB) PO SCH (08:00)
[2021-07-01 08:05] LABS: ALANINE AMINOTRANSFERASE 44 U/L (12-78); ALBUMIN 2.3 G/DL (3.4-5.0); ALBUMIN/GLOBULIN RATIO 0.4 (1.1-1.5); ALKALINE PHOSPHATASE 83 IU/L (46-116); ANION GAP 10 (8-16); ASPARTATE AMINO TRANSFERASE 28 U/L (10-37); BILIRUBIN,TOTAL 0.2 MG/DL (0.1-1.0); BLOOD UREA NITROGEN 25 MG/DL (7-18); BUN/CREATININE RATIO 28.7 (5.4-32.0); CALCIUM 9.5 MG/DL (8.5-10.1); CHLORIDE 103 MMOL/L (99-107); CREATININE 0.87 MG/DL (0.60-1.10); GLUCOSE 138 MG/DL (70-104); POTASSIUM 3.9 MMOL/L (3.5-5.1); SODIUM 142 MMOL/L (135-145); TOTAL CARBON DIOXIDE 29.1 MMOL/L (24-32); TOTAL PROTEIN 7.6 G/DL (6.4-8.2); eGFR 86 ML/MIN
[2021-07-01] MEDS: OLANZapine 5mg rapidly disint. tablet PO SCH (09:25)
[2021-07-01] MEDS: lurasidone 20mg tablet PO SCH (09:25)
[2021-07-01] MEDS: pyridoxine 50mg tablet PO SCH (09:25)
--- NOTE | 2021-07-01 10:40 | NUR ---
0700 svn not [id number] not available
[2021-07-01 11:00] VITALS: BP 96/67
[2021-07-01 11:35] LABS: GIANT PLATELET FEW; LARGE PLATELETS FEW; PLATELET ESTIMATE NORMAL
--- NOTE | 2021-07-01 12:07 | NUR ---
Rip consult: Pt noted one time w/ a stage III pressure wound to L buttocks though was not assessed by WO and currently no WOC consult. This wound was not documented on follow up physical assessments, only excoriation to posterior thigh. No picture available in chart. TC to RN though RN unavailable. Given current documentation, pt likely w/o wound. Will continue to monitor. Addendum: 07/01/21 at 1209 by [address] Amended: Links added.
[2021-07-01 15:00] VITALS: BP 133/82
[2021-07-01] MEDS: azithromycin/NS 500mg/250ml 250 ML IV SCH (17:12)
[2021-07-01] MEDS: CefTRIAXone/D5W-Rocephin 1gm 50 ML IV SCH (17:12)
[2021-07-01 18:00] VITALS: BP 122/56
--- NOTE | 2021-07-01 18:29 | NUR ---
Problems reprioritized. Patient report given, questions answered & plan of care reviewed with Dianne IYER.
--- NOTE | 2021-07-01 18:35 | NUR ---
Patient in room PCU 3021. I have received report from KIRK IYER and had the opportunity to ask questions and assume patient care.
[2021-07-01] MEDS: sennosides 8.6mg tablet PO SCH (21:10)
[2021-07-01] MEDS: olanzapine 10mg tablet PO SCH (21:11)
[2021-07-01 22:00] VITALS: BP 136/69
[2021-07-02 02:00] VITALS: BP 130/74
[2021-07-02] MEDS: methylPREDNISolone sod succ 125mg/2ml vial IV SCH ×3 (02:47→14:08)
[2021-07-02] MEDS: normal saline 1000ml 1,000 ML IV SCH (02:49)
[2021-07-02 06:00] VITALS: BP 142/60
--- NOTE | 2021-07-02 06:05 | NUR ---
Problems reprioritized. Patient report given, questions answered & plan of care reviewed with KIRK IYER.
--- NOTE | 2021-07-02 06:09 | NUR ---
Patient in room PCU 3021. I have received report from Dianne IYER and had the opportunity to ask questions and assume patient care.
[2021-07-02] MEDS: furosemide 20 MG/2 ML vial IV SCH (07:18)
[2021-07-02] MEDS: atorvastatin 20mg tablet PO SCH (07:19)
[2021-07-02] MEDS: OLANZapine 5mg rapidly disint. tablet PO SCH (07:19)
[2021-07-02] MEDS: docusate sod 100mg capsule PO SCH (07:19)
[2021-07-02] MEDS: levetiracetam 250mg tablet PO SCH (07:19)
[2021-07-02] MEDS: spironolactone 25 MG tablet PO SCH (07:19)
[2021-07-02] MEDS: risperiDONE 0.5mg tablet PO SCH (07:19)
[2021-07-02] MEDS: pantoprazole 40mg Tablet.DR PO SCH (07:20)
[2021-07-02] MEDS: amiodarone 200mg tablet PO SCH (07:20)
[2021-07-02] MEDS: tamsulosin 0.4mg capsule PO SCH (07:20)
[2021-07-02] MEDS: aspirin 81mg, enteric-coated 1 TAB TABLET.DR PO SCH (07:20)
[2021-07-02] MEDS: lactobacillus rhamnosus 10,000 MMU CELLS/CAPSULE PO SCH (07:20)
[2021-07-02] MEDS: lurasidone 20mg tablet PO SCH (07:20)
[2021-07-02] MEDS: simethicone 80mg chew tab PO SCH (07:20)
[2021-07-02] MEDS: multivitamins, therapeutics tablet PO SCH (07:20)
[2021-07-02] MEDS: enoxaparin 80mg/0.8ml syringe SUBCUT SCH (07:34)
[2021-07-02] MEDS: enoxaparin 40mg/0.4ml syringe SUBCUT SCH (07:34)
[2021-07-02] MEDS: polyethylene glycol 3350 17gm powd pack PO SCH (07:35)
[2021-07-02] MEDS: nystatin 15 GM powder TP SCH (07:35)
[2021-07-02] MEDS: pyridoxine 50mg tablet PO SCH (07:36)
[2021-07-02 11:00] VITALS: BP 136/103
[2021-07-02] MEDS ORDERED: pyridoxine 50mg tablet PO SCH (14:11)
[2021-07-02] MEDS ORDERED: PRED20TA PO (14:50)
[2021-07-02] MEDS ORDERED: LEVO500T90 PO (14:50)
[2021-07-02] MEDS ORDERED: FURO20TA4 PO (14:50)
--- NOTE | 2021-07-02 15:46 | NUR ---
discharge instruction was given to patient caregiver. discharged patient via wheelchair, stable. iv access discontinued with cannula tip complete and intact,
[2021-07-02] MEDS ORDERED: azithromycin 250mg tablet PO SCH (17:00)
[2021-07-03] MEDS ORDERED: predniSONE 20 mg tablet PO SCH (08:00)
== END 2021-07-02 15:30 | DRG 871 ==
LOC: ER 16:14 → PCU 3S 20:39
PROVIDERS: ADMIT Family Medicine; ATTEND Family Medicine
PROC: 5A0935A Assistance with Respiratory Ventilation, Less than 24 Consecutive Hours, High Flow/Velocity Cannula (ICD-10-PCS; principal; 2021-07-01)
DX: A41.9 Sepsis, unspecified organism (principal); J18.9 Pneumonia, unspecified organism; J96.01 Acute respiratory failure with hypoxia; J98.11 Atelectasis; Z68.41 Body mass index [BMI] 40.0-44.9, adult; I50.22 Chronic systolic (congestive) heart failure; Z20.822 Contact with and (suspected) exposure to COVID-19; E66.01 Morbid (severe) obesity due to excess calories; E78.5 Hyperlipidemia, unspecified; G47.33 Obstructive sleep apnea (adult) (pediatric); F17.210 Nicotine dependence, cigarettes, uncomplicated; F20.9 Schizophrenia, unspecified; F31.9 Bipolar disorder, unspecified; I11.0 Hypertensive heart disease with heart failure; I25.10 Atherosclerotic heart disease of native coronary artery without angina pectoris; I48.91 Unspecified atrial fibrillation; I25.2 Old myocardial infarction; Z88.8 Allergy status to other drugs, medicaments and biological substances; Z79.899 Other long term (current) drug therapy; Z79.82 Long term (current) use of aspirin
CPT/HCPCS: 36415; 71045; 80053; 80061; 80164; 82550; 83036; 83690; 83735; 83880; 84100; 84145; 84439; 84443; 84484; 85008; 85025; 85610; 85730; 87081; 87635; 93005; 93306; 94640; 94760; 96361; 96365; 96368; 96375; 97162; 97530; 99285; C9803; G0378; J0456; J0696; J1650; J1940; J2930; J7030

== ENCOUNTER 2023-11-20 16:42 | Inpatient (IN) | payer MEDICARE, MEDICAID ==
[~2023-11-20] VITALS: Ht 177.8 cm; Wt 124.0 kg
[~2023-11-20 16:42] MED LIST changes: +AMIO200T27 PO; -ATI1T PO; +ATOR-411 PO; -ATOR40TA71 PO; -BISA-155 PO; -DIVA-76 PO; -DIVA-81 PO; -DIVA500T2 PO; -DOCU250C96 PO; -DULR RC; +FLO0.4C PO; -GEODON IM; +HYDR-3965 PO; -HYDR-4383 PO; -IBUP-1984 PO; +LEVE10006 PO; -LISI20TA28 PO; +LURA80TA2 PO; -LURA80TA3 PO; -MAGN400O6 PO; +MULT-1085 PO; -MULT-620 PO; -NYSPWD TP; +OLAN10TA73 PO; +OLAN5TAB29 PO; +POLY17PO59 PO; -POTA-192 PO; -PRED10TA PO; +PRED20TA PO; +PYRI-3 PO; -QUET100T34 PO; +RISP1TAB13 PO; +SENN-263 PO; -SIME125C97 PO; +SIME80TA16 PO; +SPIR25TA5 PO; -TEMA30CA5 PO
[2023-11-20 17:43] LABS: BASOPHILS # (AUTO) 0.1 X10'3 (0-0.2); BASOPHILS % (AUTO) 0.4 % (0-1); EOSINOPHILS # (AUTO) 0.1 X10'3 (0-0.9); EOSINOPHILS % (AUTO) 0.6 % (0-6); HEMATOCRIT 36.5 % (42.0-52.0); HEMOGLOBIN 11.8 g/dl (14.0-17.9); LYMPHOCYTES # (AUTO) 1.3 X10'3 (1.1-4.8); LYMPHOCYTES % (AUTO) 9.1 % (21-51); MEAN CORPUSCULAR HEMOGLOBIN 28.8 PG (27.0-31.0); MEAN CORPUSCULAR HGB CONC 32.4 g/dL (33.0-36.5); MEAN CORPUSCULAR VOLUME 88.7 FL (78-98); MEAN PLATELET VOLUME 8.4 FL (7.4-10.4); MONOCYTES # (AUTO) 1.3 X10'3 (0-0.9); MONOCYTES % (AUTO) 9.3 % (2-12); NEUTROPHILS # (AUTO) 11.7 X10'3 (1.8-7.7); NEUTROPHILS % (AUTO) 80.6 % (42-75); PLATELET COUNT 201 X10'3 (140-440); RED BLOOD COUNT 4.11 X10'6 (4.70-6.10); RED CELL DISTRIBUTION WIDTH 15.3 % (11.5-14.5); WHITE BLOOD COUNT 14.5 X10'3 (4.5-11.0)
[2023-11-20 18:04] LABS: ALBUMIN 2.5 G/DL (3.4-5.0); ANION GAP 6 (8-16); BLOOD UREA NITROGEN 19 MG/DL (7-18); BUN/CREATININE RATIO 19.4 (10.0-20.0); CALCIUM 8.6 MG/DL (8.5-10.1); CHLORIDE 97 MMOL/L (99-107); CREATININE 0.98 MG/DL (0.60-1.10); GLUCOSE 101 MG/DL (70-104); POTASSIUM 4.5 MMOL/L (3.5-5.1); PRO BRAIN NATRIURETIC PEPTIDE 1266 PG/ML (0-450); SODIUM 134 MMOL/L (135-145); TOTAL CARBON DIOXIDE 31.1 MMOL/L (24-32); eCRCL 66 ML/MIN; eGFR 74 ML/MIN
[2023-11-20 18:05] LABS: ABG BASE EXCESS 1.4 mmol/L (-2.0-2.0); ABG HCO3 26.4 mmol/L (22.0-26.0); ABG OXYGEN SATURATION 95.9 % (94-97); ABG PCO2 (T) 43.2 mmHg (35.0-48.0); ABG PH (T) 7.404 (7.340-7.440); ALLEN'S TEST POSITIVE; FCOHb 1.9 % (0.0-3.9); FMetHb 0.1 % (0.0-1.5); MODE NASAL CANNULA; TOTAL HEMOGLOBIN 12.9 G/dl (14.0-17.9)
[2023-11-20] MEDS ORDERED: furosemide 10 MG/1 ML 10ml inj IV ONE (18:10)
[2023-11-20] MEDS: ipratropium/albuterol 3ml nebule NEB ONE (18:46)
[2023-11-20 18:48] VITALS: PULSE 64; RESP 16; O2SAT 93
[2023-11-20 18:56] VITALS: PULSE 81; RESP 16; O2SAT 100
[2023-11-20] MEDS: furosemide 20 MG/2 ML vial IV ONE (19:07)
[2023-11-20] MEDS: CefTRIAXone/D5W-Rocephin 1gm 50 ML IV ONE (19:12)
[2023-11-20] MEDS ORDERED: potassium Cl 40MEQ/1/2NS 520ml 520 ML IV PRN (19:35)
[2023-11-20] MEDS ORDERED: magnesium 2GM in 50ml NS 50 ML IV PRN (19:35)
[2023-11-20] MEDS ORDERED: potassium Cl 20 mEq SR tablet PO PRN ×2 (19:35)
[2023-11-20] MEDS ORDERED: magnesium Cl slow-release 64mg tablet PO PRN (19:35)
[2023-11-20] MEDS ORDERED: ondansetron/PF 4mg/2ml inj IV PRN (19:35)
[2023-11-20] MEDS ORDERED: magnesium 4gm in 100ml NS 100 ML IV PRN (19:35)
[2023-11-20] MEDS: azithromycin/NS 500mg/250ml 250 ML IV ONE (19:40)
[2023-11-20] MEDS: K and/or MAG REPLACEMENT MC SCH (20:00)
[2023-11-20] MEDS: docusate sod 100mg capsule PO SCH (20:00)
[2023-11-20] MEDS: furosemide 10 MG/1 ML 10ml inj IV SCH (20:00)
[2023-11-20 20:17] LABS: THYROID STIMULATING HORMONE 3.35 ulU/ml (0.34-4.50)
[2023-11-20] MEDS: PERFLUTREN PROTEIN-A MICROSPHR (Optison) 0.22 MG/ML 3ML VIAL IV ONE (20:30)
[2023-11-20 21:05] VITALS: BP 104/42; PULSE 64; RESP 16; TEMP 97.6; O2SAT 90
[2023-11-20 21:55] LABS: BILIRUBIN,URINE NEGATIVE (Neg); CLARITY,URINE CLEAR (Clear); COLOR,URINE YELLOW (Yellow); GLUCOSE, URINE NEGATIVE (Neg); KETONES,URINE NEGATIVE (Neg); LEUKOCYTE ESTERASE ,URINE NEGATIVE (Neg); NITRITES, URINE NEGATIVE (Neg); OCCULT BLOOD,URINE NEGATIVE (Neg); PROTEIN,URINE NEGATIVE (Neg); UROBILINOGEN,URINE 0.2 E.U/dL (0.2-1.0)
[2023-11-20 22:00] VITALS: BP 104/41; PULSE 57; RESP 18; TEMP 97.7; O2SAT 93
[2023-11-20 22:01] LABS: UA COLLECTION TYPE NON-SPECIFIED
[2023-11-20] MEDS: heparin, porcine 5000 units/ml vial SQ SCH (22:31)
[2023-11-20] MEDS ORDERED: DOCU250C15 PO (22:33)
[2023-11-20] MEDS ORDERED: QUET200T31 PO (22:33)
[2023-11-20] MEDS ORDERED: SODI133E14 RC (22:33)
[2023-11-20] MEDS ORDERED: DOXY-1 PO (22:33)
[2023-11-20] MEDS ORDERED: ALB0.5UD IH (22:33)
[2023-11-20] MEDS ORDERED: SENN-263 PO (22:33)
[2023-11-20] MEDS ORDERED: TRAZ-251 PO (22:33)
[2023-11-20] MEDS ORDERED: [UNRECOGNIZED DRUG - CODE] PO (22:33)
[2023-11-20] MEDS ORDERED: POTA-84 PO (22:33)
[2023-11-20] MEDS ORDERED: BISA10SU60 RC (22:33)
[2023-11-20] MEDS ORDERED: LEVO25CA4 PO (22:33)
[2023-11-20] MEDS ORDERED: PRED5TAB PO (22:33)
[2023-11-20] MEDS ORDERED: IBUP-1594 PO (22:33)
[2023-11-20] MEDS ORDERED: MENT7.6L8 PO (22:33)
[2023-11-20] MEDS ORDERED: PEG15DRO14 EACHEYE (22:33)
[2023-11-20] MEDS ORDERED: LORA-269 PO (22:33)
[2023-11-20] MEDS ORDERED: METF-438 PO (22:33)
[2023-11-20] MEDS ORDERED: MAGN400O6 PO (22:33)
[2023-11-20] MEDS ORDERED: BISM262O PO (22:33)
[2023-11-20 23:00] VITALS: PULSE 56; RESP 16; O2SAT 92
[2023-11-20] MEDS: quetiapine 100mg tablet PO SCH (23:39)
[2023-11-21] VITALS (16 sets, daily range): BP systolic 110–128; BP diastolic 47–59; PULSE 54–82; RESP 16–22; TEMP 96.5–98.6; O2SAT 84–99
[2023-11-21] MEDS: guaiFENesin ER 600mg tablet PO SCH (03:52)
[2023-11-21 06:16] LABS: BASOPHILS % (AUTO) 0.2 % (0-1); EOSINOPHILS % (AUTO) 0.1 % (0-6); HEMATOCRIT 36.4 % (42.0-52.0); HEMOGLOBIN 11.9 g/dl (14.0-17.9); LYMPHOCYTES # (AUTO) 0.5 X10'3 (1.1-4.8); LYMPHOCYTES % (AUTO) 4.2 % (21-51); MEAN CORPUSCULAR HEMOGLOBIN 28.6 PG (27.0-31.0); MEAN CORPUSCULAR HGB CONC 32.6 g/dL (33.0-36.5); MEAN CORPUSCULAR VOLUME 87.9 FL (78-98); MEAN PLATELET VOLUME 8.2 FL (7.4-10.4); MONOCYTES # (AUTO) 0.9 X10'3 (0-0.9); NEUTROPHILS # (AUTO) 11.4 X10'3 (1.8-7.7); NEUTROPHILS % (AUTO) 88.5 % (42-75); PLATELET COUNT 199 X10'3 (140-440); RED BLOOD COUNT 4.14 X10'6 (4.70-6.10); RED CELL DISTRIBUTION WIDTH 15.7 % (11.5-14.5); WHITE BLOOD COUNT 12.9 X10'3 (4.5-11.0)
[2023-11-21 06:29] LABS: ALANINE AMINOTRANSFERASE 23 U/L (12-78); ALBUMIN 2.5 G/DL (3.4-5.0); ALBUMIN/GLOBULIN RATIO 0.5 (1.1-1.5); ALKALINE PHOSPHATASE 70 IU/L (46-116); ANION GAP 3 (8-16); ASPARTATE AMINO TRANSFERASE 14 U/L (10-37); BILIRUBIN,TOTAL 0.3 MG/DL (0.1-1.0); BLOOD UREA NITROGEN 20 MG/DL (7-18); BUN/CREATININE RATIO 18.3 (10.0-20.0); CALCIUM 8.7 MG/DL (8.5-10.1); CHLORIDE 98 MMOL/L (99-107); CHOL/HDL RATIO 2.5 (0.00-4.99); CHOLESTEROL 130 MG/DL (0-200); CREATININE 1.09 MG/DL (0.60-1.10); GLUCOSE 105 MG/DL (70-104); HDL CHOLESTEROL 53 MG/DL (35-60); LDL CHOLESTEROL 65 MG/DL (50-100); MAGNESIUM 1.8 MG/DL (1.5-2.4); POTASSIUM 4.1 MMOL/L (3.5-5.1); SODIUM 136 MMOL/L (135-145); TOTAL CARBON DIOXIDE 35.4 MMOL/L (24-32); TOTAL PROTEIN 7.1 G/DL (6.4-8.2); TRIGLYCERIDES 34 MG/DL (20-135); eCRCL 60 ML/MIN; eGFR 66 ML/MIN
[2023-11-21] MEDS ORDERED: CefTRIAXone/D5W-Rocephin 1gm 50 ML IV SCH (08:00)
[2023-11-21] MEDS: albuterol 2.5 MG/3 ML nebule NEB SCH (08:00)
[2023-11-21] MEDS ORDERED: furosemide 20MG tablet PO SCH (08:00)
[2023-11-21] MEDS: CefTRIAXone/D5W-Rocephin 1gm 50 ML IV SCH (09:34)
[2023-11-21] MEDS: furosemide 40mg/4ml inj IV SCH (09:35)
[2023-11-21] MEDS: predniSONE 20 mg tablet PO SCH (09:35)
[2023-11-21] MEDS: atorvastatin 20mg tablet PO SCH (09:36)
[2023-11-21] MEDS: aspirin 81mg, enteric-coated 1 TAB TABLET.DR PO SCH (09:36)
[2023-11-21] MEDS: levoTHYROXINE 25mcg tablet PO SCH (09:36)
[2023-11-21] MEDS: amiodarone 200mg tablet PO SCH (09:36)
[2023-11-21] MEDS: levetiracetam 250mg tablet PO SCH (09:36)
[2023-11-21] MEDS: pyridoxine 50mg tablet PO SCH (09:37)
[2023-11-21] MEDS: azithromycin/NS 500mg/250ml 250 ML IV SCH (09:38)
[2023-11-21] MEDS: tamsulosin 0.4mg capsule PO SCH (09:39)
[2023-11-21] MEDS: OLANZapine 5mg rapidly disint. tablet PO SCH (10:27)
[2023-11-21] MEDS ORDERED: ondansetron 4mg rapidly disintigrating tab PO PRN (12:00)
[2023-11-21] MEDS: lurasidone 60mg tablet PO SCH (18:09)
[2023-11-21] MEDS: lurasidone 20mg tablet PO SCH (18:09)
[2023-11-21] MEDS: traZODone 50mg tablet PO SCH (21:07)
[2023-11-21] MEDS: sennosides 8.6mg tablet PO SCH (21:07)
[2023-11-21] MEDS: olanzapine 10mg tablet PO SCH (21:08)
[2023-11-21] MEDS: LORazepam 1 MG tablet PO PRN (22:57)
[2023-11-22] VITALS (17 sets, daily range): BP systolic 111–142; BP diastolic 53–86; PULSE 51–90; RESP 11–22; TEMP 97.3–97.7; O2SAT 89–99
[2023-11-22 08:00] LABS: BASOPHILS # (AUTO) 0.1 X10'3 (0-0.2); BASOPHILS % (AUTO) 0.5 % (0-1); EOSINOPHILS % (AUTO) 0 % (0-6); HEMATOCRIT 38.1 % (42.0-52.0); HEMOGLOBIN 12.3 g/dl (14.0-17.9); LYMPHOCYTES # (AUTO) 0.7 X10'3 (1.1-4.8); LYMPHOCYTES % (AUTO) 4.8 % (21-51); MEAN CORPUSCULAR HEMOGLOBIN 28.7 PG (27.0-31.0); MEAN CORPUSCULAR HGB CONC 32.4 g/dL (33.0-36.5); MEAN CORPUSCULAR VOLUME 88.4 FL (78-98); MEAN PLATELET VOLUME 8.7 FL (7.4-10.4); MONOCYTES % (AUTO) 6.9 % (2-12); NEUTROPHILS # (AUTO) 12.6 X10'3 (1.8-7.7); NEUTROPHILS % (AUTO) 87.8 % (42-75); PLATELET COUNT 230 X10'3 (140-440); RED CELL DISTRIBUTION WIDTH 14.9 % (11.5-14.5); WHITE BLOOD COUNT 14.3 X10'3 (4.5-11.0)
[2023-11-22 08:50] LABS: ALANINE AMINOTRANSFERASE 23 U/L (12-78); ALBUMIN 2.4 G/DL (3.4-5.0); ALBUMIN/GLOBULIN RATIO 0.5 (1.1-1.5); ALKALINE PHOSPHATASE 73 IU/L (46-116); ANION GAP 6 (8-16); ASPARTATE AMINO TRANSFERASE 20 U/L (10-37); BILIRUBIN,TOTAL 0.3 MG/DL (0.1-1.0); BLOOD UREA NITROGEN 20 MG/DL (7-18); BUN/CREATININE RATIO 26.7 (10.0-20.0); CALCIUM 9.2 MG/DL (8.5-10.1); CHLORIDE 96 MMOL/L (99-107); CREATININE 0.75 MG/DL (0.60-1.10); GLUCOSE 99 MG/DL (70-104); MAGNESIUM 1.9 MG/DL (1.5-2.4); SODIUM 136 MMOL/L (135-145); TOTAL CARBON DIOXIDE 34.5 MMOL/L (24-32); eCRCL 87 ML/MIN; eGFR > 90 ML/MIN
[2023-11-22] MEDS: azithromycin/NS 500mg/250ml 250 ML IV SCH (11:14)
[2023-11-22 20:52] LABS: APTT 24 SECONDS (22-32); PROTHROMBIN TIME 10.7 SECONDS (9.0-12.0)
[2023-11-23] VITALS (18 sets, daily range): BP systolic 110–149; BP diastolic 62–90; PULSE 51–129; RESP 13–22; TEMP 97.4–98; O2SAT 90–98
[2023-11-23] MEDS: magnesium citrate 296ml oral solution PO ONE (05:45)
[2023-11-23 07:10] LABS: BASOPHILS # (AUTO) 0.1 X10'3 (0-0.2); BASOPHILS % (AUTO) 0.8 % (0-1); EOSINOPHILS % (AUTO) 0.1 % (0-6); HEMATOCRIT 41.4 % (42.0-52.0); HEMOGLOBIN 13.3 g/dl (14.0-17.9); LYMPHOCYTES # (AUTO) 0.7 X10'3 (1.1-4.8); LYMPHOCYTES % (AUTO) 5.2 % (21-51); MEAN CORPUSCULAR HEMOGLOBIN 28.4 PG (27.0-31.0); MEAN CORPUSCULAR HGB CONC 32.2 g/dL (33.0-36.5); MEAN PLATELET VOLUME 8.4 FL (7.4-10.4); MONOCYTES % (AUTO) 7.5 % (2-12); NEUTROPHILS # (AUTO) 11.3 X10'3 (1.8-7.7); NEUTROPHILS % (AUTO) 86.4 % (42-75); PLATELET COUNT 301 X10'3 (140-440); RED BLOOD COUNT 4.71 X10'6 (4.70-6.10); RED CELL DISTRIBUTION WIDTH 15.2 % (11.5-14.5)
[2023-11-23 07:23] LABS: ALANINE AMINOTRANSFERASE 23 U/L (12-78); ALBUMIN 2.4 G/DL (3.4-5.0); ALBUMIN/GLOBULIN RATIO 0.5 (1.1-1.5); ALKALINE PHOSPHATASE 64 IU/L (46-116); ANION GAP 7 (8-16); ASPARTATE AMINO TRANSFERASE 20 U/L (10-37); BILIRUBIN,TOTAL 0.2 MG/DL (0.1-1.0); BLOOD UREA NITROGEN 26 MG/DL (7-18); BUN/CREATININE RATIO 34.2 (10.0-20.0); CALCIUM 9.6 MG/DL (8.5-10.1); CHLORIDE 97 MMOL/L (99-107); CREATININE 0.76 MG/DL (0.60-1.10); GLUCOSE 104 MG/DL (70-104); MAGNESIUM 1.9 MG/DL (1.5-2.4); POTASSIUM 4.1 MMOL/L (3.5-5.1); SODIUM 140 MMOL/L (135-145); TOTAL CARBON DIOXIDE 36.3 MMOL/L (24-32); TOTAL PROTEIN 7.2 G/DL (6.4-8.2); eCRCL 85 ML/MIN; eGFR > 90 ML/MIN
[2023-11-23] MEDS: pneumococcal 23-VAL P-sac vacc 25 mcg/0.5ml vial IMVAC ONE (14:40)
[2023-11-23] MEDS ORDERED: magnesium citrate 296ml oral solution PO ONE (18:15)
[2023-11-23] MEDS ORDERED: mineral oil 133ml enema RC PRN (18:40)
[2023-11-23] MEDS: amiodarone 100mg tablet PO ONE (19:25)
[2023-11-23] MEDS: lactulose 20gm/30ml cup PO ONE (20:21)
[2023-11-24] VITALS (17 sets, daily range): BP systolic 99–139; BP diastolic 54–84; PULSE 51–80; RESP 14–20; TEMP 97–98.1; O2SAT 90–99
[2023-11-24] MEDS: ipratropium/albuterol 3ml nebule NEB PRN (02:35)
[2023-11-24 06:30] LABS: BASOPHILS # (AUTO) 0.1 X10'3 (0-0.2); BASOPHILS % (AUTO) 0.5 % (0-1); EOSINOPHILS # (AUTO) 0.1 X10'3 (0-0.9); EOSINOPHILS % (AUTO) 0.4 % (0-6); HEMATOCRIT 42.6 % (42.0-52.0); HEMOGLOBIN 13.7 g/dl (14.0-17.9); LYMPHOCYTES # (AUTO) 0.8 X10'3 (1.1-4.8); LYMPHOCYTES % (AUTO) 5.9 % (21-51); MEAN CORPUSCULAR HEMOGLOBIN 28.1 PG (27.0-31.0); MEAN CORPUSCULAR HGB CONC 32.3 g/dL (33.0-36.5); MEAN CORPUSCULAR VOLUME 87.1 FL (78-98); MEAN PLATELET VOLUME 7.8 FL (7.4-10.4); MONOCYTES # (AUTO) 1.1 X10'3 (0-0.9); MONOCYTES % (AUTO) 7.8 % (2-12); NEUTROPHILS # (AUTO) 11.6 X10'3 (1.8-7.7); NEUTROPHILS % (AUTO) 85.4 % (42-75); PLATELET COUNT 296 X10'3 (140-440); RED BLOOD COUNT 4.89 X10'6 (4.70-6.10); WHITE BLOOD COUNT 13.6 X10'3 (4.5-11.0)
[2023-11-24 06:43] LABS: ALANINE AMINOTRANSFERASE 23 U/L (12-78); ALBUMIN 2.5 G/DL (3.4-5.0); ALBUMIN/GLOBULIN RATIO 0.5 (1.1-1.5); ALKALINE PHOSPHATASE 63 IU/L (46-116); ANION GAP 2 (8-16); ASPARTATE AMINO TRANSFERASE 15 U/L (10-37); BILIRUBIN,TOTAL 0.3 MG/DL (0.1-1.0); BLOOD UREA NITROGEN 31 MG/DL (7-18); CALCIUM 9.8 MG/DL (8.5-10.1); CHLORIDE 95 MMOL/L (99-107); CREATININE 0.97 MG/DL (0.60-1.10); GLUCOSE 111 MG/DL (70-104); MAGNESIUM 1.9 MG/DL (1.5-2.4); POTASSIUM 4.1 MMOL/L (3.5-5.1); SODIUM 133 MMOL/L (135-145); TOTAL CARBON DIOXIDE 36.3 MMOL/L (24-32); TOTAL PROTEIN 7.2 G/DL (6.4-8.2); eCRCL 67 ML/MIN; eGFR 75 ML/MIN
[2023-11-25] VITALS (14 sets, daily range): BP systolic 117–142; BP diastolic 53–78; PULSE 54–85; RESP 16–20; TEMP 97.4–97.8; O2SAT 88–100
[2023-11-25 05:44] LABS: BASOPHILS % (AUTO) 0.1 % (0-1); EOSINOPHILS % (AUTO) 0.1 % (0-6); HEMOGLOBIN 14.1 g/dl (14.0-17.9); LYMPHOCYTES # (AUTO) 0.8 X10'3 (1.1-4.8); LYMPHOCYTES % (AUTO) 6.1 % (21-51); MEAN CORPUSCULAR HEMOGLOBIN 28.9 PG (27.0-31.0); MEAN CORPUSCULAR HGB CONC 32.8 g/dL (33.0-36.5); MEAN CORPUSCULAR VOLUME 88.2 FL (78-98); MEAN PLATELET VOLUME 8.1 FL (7.4-10.4); MONOCYTES # (AUTO) 0.8 X10'3 (0-0.9); MONOCYTES % (AUTO) 5.9 % (2-12); NEUTROPHILS # (AUTO) 12.2 X10'3 (1.8-7.7); NEUTROPHILS % (AUTO) 87.8 % (42-75); PLATELET COUNT 327 X10'3 (140-440); RED BLOOD COUNT 4.87 X10'6 (4.70-6.10); RED CELL DISTRIBUTION WIDTH 14.7 % (11.5-14.5); WHITE BLOOD COUNT 13.9 X10'3 (4.5-11.0)
[2023-11-25 06:00] LABS: ALANINE AMINOTRANSFERASE 29 U/L (12-78); ALBUMIN 2.5 G/DL (3.4-5.0); ALBUMIN/GLOBULIN RATIO 0.5 (1.1-1.5); ALKALINE PHOSPHATASE 55 IU/L (46-116); ANION GAP 3 (8-16); ASPARTATE AMINO TRANSFERASE 11 U/L (10-37); BILIRUBIN,TOTAL 0.2 MG/DL (0.1-1.0); BLOOD UREA NITROGEN 33 MG/DL (7-18); BUN/CREATININE RATIO 34.4 (10.0-20.0); CALCIUM 9.5 MG/DL (8.5-10.1); CHLORIDE 95 MMOL/L (99-107); CREATININE 0.96 MG/DL (0.60-1.10); GLUCOSE 123 MG/DL (70-104); POTASSIUM 4.2 MMOL/L (3.5-5.1); SODIUM 135 MMOL/L (135-145); TOTAL PROTEIN 7.2 G/DL (6.4-8.2); eCRCL 68 ML/MIN; eGFR 76 ML/MIN
[2023-11-25 06:20] LABS: PLATELET ESTIMATE NORMAL; TOTAL CELLS COUNTED 100
[2023-11-25] MEDS: JUVEN Shake w/Arg/Glut/Ca2+Bmb (Juven 19.3gm) pkt 240ml PO SCH (12:30)
[2023-11-25] MEDS: albumin (Human) 5% 250ml 250 ML IV ONE (14:03)
[2023-11-25] MEDS: diltiazem 5mg/ml 5ml inj. IV ONE (14:48)
[2023-11-25 15:21] LABS: PRO BRAIN NATRIURETIC PEPTIDE 429 PG/ML (0-450)
[2023-11-26] VITALS (13 sets, daily range): BP systolic 129–146; BP diastolic 59–89; PULSE 55–75; RESP 14–20; TEMP 96.8–98.5; O2SAT 87–97
[2023-11-26] MEDS: azithromycin 250mg tablet PO SCH (08:02)
[2023-11-27] VITALS (14 sets, daily range): BP systolic 102–148; BP diastolic 59–71; PULSE 60–88; RESP 11–21; TEMP 96.9–98; O2SAT 88–98
[2023-11-27] MEDS ORDERED: predniSONE 20 mg tablet PO SCH (08:00)
[2023-11-27 09:31] LABS: BASOPHILS # (AUTO) 0.1 X10'3 (0-0.2); BASOPHILS % (AUTO) 1.1 % (0-1); EOSINOPHILS # (AUTO) 0.2 X10'3 (0-0.9); EOSINOPHILS % (AUTO) 1.5 % (0-6); HEMATOCRIT 43.1 % (42.0-52.0); HEMOGLOBIN 13.8 g/dl (14.0-17.9); LYMPHOCYTES # (AUTO) 1.9 X10'3 (1.1-4.8); LYMPHOCYTES % (AUTO) 16.2 % (21-51); MEAN CORPUSCULAR HEMOGLOBIN 28.5 PG (27.0-31.0); MEAN CORPUSCULAR HGB CONC 32.1 g/dL (33.0-36.5); MEAN CORPUSCULAR VOLUME 88.8 FL (78-98); MEAN PLATELET VOLUME 7.7 FL (7.4-10.4); MONOCYTES # (AUTO) 1.2 X10'3 (0-0.9); MONOCYTES % (AUTO) 10.4 % (2-12); NEUTROPHILS # (AUTO) 8.2 X10'3 (1.8-7.7); NEUTROPHILS % (AUTO) 70.8 % (42-75); PLATELET COUNT 318 X10'3 (140-440); RED BLOOD COUNT 4.86 X10'6 (4.70-6.10); RED CELL DISTRIBUTION WIDTH 15.4 % (11.5-14.5); WHITE BLOOD COUNT 11.6 X10'3 (4.5-11.0)
[2023-11-27 09:53] LABS: PLATELET ESTIMATE NORMAL; TOTAL CELLS COUNTED 100
[2023-11-27 09:59] LABS: ANION GAP 6 (8-16); BLOOD UREA NITROGEN 38 MG/DL (7-18); BUN/CREATININE RATIO 44.2 (10.0-20.0); CALCIUM 9.6 MG/DL (8.5-10.1); CHLORIDE 99 MMOL/L (99-107); CREATININE 0.86 MG/DL (0.60-1.10); GLUCOSE 93 MG/DL (70-104); POTASSIUM 4.1 MMOL/L (3.5-5.1); SODIUM 136 MMOL/L (135-145); TOTAL CARBON DIOXIDE 30.7 MMOL/L (24-32); eCRCL 75 ML/MIN; eGFR 86 ML/MIN
[2023-11-27 10:00] LABS: ALANINE AMINOTRANSFERASE 27 U/L (12-78); ALBUMIN 2.7 G/DL (3.4-5.0); ALBUMIN/GLOBULIN RATIO 0.7 (1.1-1.5); ALKALINE PHOSPHATASE 47 IU/L (46-116); ASPARTATE AMINO TRANSFERASE 17 U/L (10-37); BILIRUBIN,TOTAL 0.3 MG/DL (0.1-1.0); TOTAL PROTEIN 6.7 G/DL (6.4-8.2)
[2023-11-28] VITALS (15 sets, daily range): BP systolic 129–168; BP diastolic 59–84; PULSE 73–130; RESP 13–18; TEMP 97.4–98.5; O2SAT 84–93
[2023-11-28] MEDS: OLANZAPINE 5 MG TABLET PO SCH (08:26)
[2023-11-28] MEDS: metoprolol tartrate 1mg/ml inj IV ONE (19:30)
[2023-11-28] MEDS: tamsulosin 0.4mg capsule PO SCH (19:34)
[2023-11-29] VITALS (12 sets, daily range): BP systolic 107–160; BP diastolic 64–80; PULSE 64–156; RESP 14–22; TEMP 97.6–98.6; O2SAT 87–94
[2023-11-29 07:41] LABS: BASOPHILS # (AUTO) 0.1 X10'3 (0-0.2); BASOPHILS % (AUTO) 0.6 % (0-1); EOSINOPHILS # (AUTO) 0.2 X10'3 (0-0.9); EOSINOPHILS % (AUTO) 1.2 % (0-6); HEMATOCRIT 47.8 % (42.0-52.0); HEMOGLOBIN 15.5 g/dl (14.0-17.9); LYMPHOCYTES # (AUTO) 1.6 X10'3 (1.1-4.8); LYMPHOCYTES % (AUTO) 10.7 % (21-51); MEAN CORPUSCULAR HEMOGLOBIN 28.6 PG (27.0-31.0); MEAN CORPUSCULAR HGB CONC 32.4 g/dL (33.0-36.5); MEAN CORPUSCULAR VOLUME 88.4 FL (78-98); MEAN PLATELET VOLUME 7.9 FL (7.4-10.4); MONOCYTES # (AUTO) 1.3 X10'3 (0-0.9); MONOCYTES % (AUTO) 8.6 % (2-12); NEUTROPHILS # (AUTO) 12.1 X10'3 (1.8-7.7); NEUTROPHILS % (AUTO) 78.9 % (42-75); PLATELET COUNT 330 X10'3 (140-440); RED BLOOD COUNT 5.41 X10'6 (4.70-6.10); RED CELL DISTRIBUTION WIDTH 15.7 % (11.5-14.5); WHITE BLOOD COUNT 15.3 X10'3 (4.5-11.0)
[2023-11-29 08:08] LABS: ALANINE AMINOTRANSFERASE 40 U/L (12-78); ALBUMIN 2.9 G/DL (3.4-5.0); ALBUMIN/GLOBULIN RATIO 0.7 (1.1-1.5); ALKALINE PHOSPHATASE 59 IU/L (46-116); ANION GAP 7 (8-16); ASPARTATE AMINO TRANSFERASE 20 U/L (10-37); BILIRUBIN,TOTAL 0.6 MG/DL (0.1-1.0); BLOOD UREA NITROGEN 37 MG/DL (7-18); BUN/CREATININE RATIO 41.1 (10.0-20.0); CALCIUM 10.3 MG/DL (8.5-10.1); CHLORIDE 112 MMOL/L (99-107); GLUCOSE 113 MG/DL (70-104); POTASSIUM 3.9 MMOL/L (3.5-5.1); SODIUM 149 MMOL/L (135-145); TOTAL CARBON DIOXIDE 29.8 MMOL/L (24-32); TOTAL PROTEIN 7.3 G/DL (6.4-8.2); eCRCL 72 ML/MIN; eGFR 82 ML/MIN
[2023-11-29] MEDS: methylPREDNISolone sod succ/PF 40mg inj. IV SCH (10:15)
[2023-11-29] MEDS: dextrose 5%-water 1,000 ML IV SCH (11:40)
[2023-11-29] MEDS: metoprolol tartrate 1mg/ml inj IV ONE (19:26)
[2023-11-29] MEDS: CefTRIAXone 2gm/D5W 50ml BAG 50 ML IV SCH (20:21)
[2023-11-30] VITALS (13 sets, daily range): BP systolic 138–152; BP diastolic 66–86; PULSE 66–89; RESP 14–19; TEMP 97.3–97.9; O2SAT 87–93
[2023-11-30 09:44] LABS: BASOPHILS % (AUTO) 0.3 % (0-1); EOSINOPHILS % (AUTO) 0.1 % (0-6); HEMATOCRIT 46.2 % (42.0-52.0); HEMOGLOBIN 14.7 g/dl (14.0-17.9); LYMPHOCYTES # (AUTO) 1.1 X10'3 (1.1-4.8); LYMPHOCYTES % (AUTO) 7.2 % (21-51); MEAN CORPUSCULAR HEMOGLOBIN 28.4 PG (27.0-31.0); MEAN CORPUSCULAR HGB CONC 31.7 g/dL (33.0-36.5); MEAN CORPUSCULAR VOLUME 89.6 FL (78-98); MEAN PLATELET VOLUME 8.7 FL (7.4-10.4); MONOCYTES # (AUTO) 0.6 X10'3 (0-0.9); MONOCYTES % (AUTO) 4.3 % (2-12); NEUTROPHILS # (AUTO) 13.1 X10'3 (1.8-7.7); NEUTROPHILS % (AUTO) 88.1 % (42-75); PLATELET COUNT 281 X10'3 (140-440); RED BLOOD COUNT 5.16 X10'6 (4.70-6.10); RED CELL DISTRIBUTION WIDTH 16.1 % (11.5-14.5); WHITE BLOOD COUNT 14.8 X10'3 (4.5-11.0)
[2023-11-30 09:47] LABS: ALANINE AMINOTRANSFERASE 40 U/L (12-78); ALBUMIN 2.7 G/DL (3.4-5.0); ALBUMIN/GLOBULIN RATIO 0.6 (1.1-1.5); ALKALINE PHOSPHATASE 56 IU/L (46-116); ANION GAP 11 (8-16); ASPARTATE AMINO TRANSFERASE 14 U/L (10-37); BILIRUBIN,TOTAL 0.5 MG/DL (0.1-1.0); BLOOD UREA NITROGEN 37 MG/DL (7-18); CHLORIDE 110 MMOL/L (99-107); CREATININE 0.86 MG/DL (0.60-1.10); GLUCOSE 181 MG/DL (70-104); POTASSIUM 3.8 MMOL/L (3.5-5.1); SODIUM 147 MMOL/L (135-145); TOTAL CARBON DIOXIDE 26.4 MMOL/L (24-32); TOTAL PROTEIN 7.2 G/DL (6.4-8.2); eCRCL 75 ML/MIN; eGFR 86 ML/MIN
[2023-11-30] MEDS ORDERED: lactose-reduced food (Ensure High Protein) 237ml bottle PO SCH (12:30)
[2023-12-01] VITALS (13 sets, daily range): BP systolic 144–161; BP diastolic 70–84; PULSE 60–79; RESP 12–22; TEMP 97.1–98.8; O2SAT 88–94
[2023-12-01] MEDS: methylPREDNISolone sod succ/PF 40mg inj. IV SCH (20:45)
[2023-12-02] VITALS (18 sets, daily range): BP systolic 130–149; BP diastolic 46–86; PULSE 54–124; RESP 14–20; TEMP 97.6–98.2; O2SAT 87–96
[2023-12-02 07:44] LABS: BASOPHILS % (AUTO) 0.1 % (0-1); EOSINOPHILS % (AUTO) 0 % (0-6); HEMATOCRIT 45.8 % (42.0-52.0); HEMOGLOBIN 14.6 g/dl (14.0-17.9); LYMPHOCYTES # (AUTO) 0.9 X10'3 (1.1-4.8); LYMPHOCYTES % (AUTO) 8.1 % (21-51); MEAN CORPUSCULAR HEMOGLOBIN 28.2 PG (27.0-31.0); MEAN CORPUSCULAR HGB CONC 31.8 g/dL (33.0-36.5); MEAN CORPUSCULAR VOLUME 88.6 FL (78-98); MEAN PLATELET VOLUME 8.4 FL (7.4-10.4); MONOCYTES # (AUTO) 0.7 X10'3 (0-0.9); MONOCYTES % (AUTO) 5.9 % (2-12); NEUTROPHILS # (AUTO) 10.1 X10'3 (1.8-7.7); NEUTROPHILS % (AUTO) 85.9 % (42-75); PLATELET COUNT 229 X10'3 (140-440); RED BLOOD COUNT 5.17 X10'6 (4.70-6.10); RED CELL DISTRIBUTION WIDTH 15.8 % (11.5-14.5); WHITE BLOOD COUNT 11.7 X10'3 (4.5-11.0)
[2023-12-02 08:00] LABS: ALANINE AMINOTRANSFERASE 38 U/L (12-78); ALBUMIN 2.6 G/DL (3.4-5.0); ALBUMIN/GLOBULIN RATIO 0.6 (1.1-1.5); ALKALINE PHOSPHATASE 50 IU/L (46-116); ANION GAP 6 (8-16); ASPARTATE AMINO TRANSFERASE 13 U/L (10-37); BILIRUBIN,TOTAL 0.4 MG/DL (0.1-1.0); BLOOD UREA NITROGEN 34 MG/DL (7-18); BUN/CREATININE RATIO 47.2 (10.0-20.0); CALCIUM 9.6 MG/DL (8.5-10.1); CHLORIDE 110 MMOL/L (99-107); CREATININE 0.72 MG/DL (0.60-1.10); GLUCOSE 108 MG/DL (70-104); POTASSIUM 4.1 MMOL/L (3.5-5.1); SODIUM 144 MMOL/L (135-145); TOTAL CARBON DIOXIDE 28.3 MMOL/L (24-32); TOTAL PROTEIN 6.9 G/DL (6.4-8.2); eCRCL 90 ML/MIN; eGFR > 90 ML/MIN
[2023-12-02] MEDS: magnesium hydroxide 30ml (MOM) UD suspension PO PRN (10:02)
[2023-12-03] VITALS (9 sets, daily range): BP systolic 136; BP diastolic 73; PULSE 52–87; RESP 13–19; TEMP 97.7; O2SAT 71–96
[2023-12-03] MEDS: polyethylene glycol 3350 17gm powd pack PO PRN (11:26)
[2023-12-04 07:37] VITALS: PULSE 52; RESP 22; O2SAT 90
[2023-12-04 07:45] VITALS: PULSE 54; RESP 22
[2023-12-04 08:00] VITALS: RESP 16; O2SAT 71
[2023-12-04 09:08] LABS: BASOPHILS % (AUTO) 0.2 % (0-1); EOSINOPHILS % (AUTO) 0.3 % (0-6); HEMATOCRIT 46.4 % (42.0-52.0); HEMOGLOBIN 14.9 g/dl (14.0-17.9); LYMPHOCYTES % (AUTO) 6.7 % (21-51); MEAN CORPUSCULAR HGB CONC 32.2 g/dL (33.0-36.5); MEAN CORPUSCULAR VOLUME 89.9 FL (78-98); MEAN PLATELET VOLUME 8.5 FL (7.4-10.4); MONOCYTES # (AUTO) 0.7 X10'3 (0-0.9); MONOCYTES % (AUTO) 4.8 % (2-12); NEUTROPHILS # (AUTO) 13.1 X10'3 (1.8-7.7); PLATELET COUNT 219 X10'3 (140-440); RED BLOOD COUNT 5.16 X10'6 (4.70-6.10); WHITE BLOOD COUNT 14.9 X10'3 (4.5-11.0)
[2023-12-04 09:23] LABS: ALANINE AMINOTRANSFERASE 32 U/L (12-78); ALBUMIN 2.7 G/DL (3.4-5.0); ALBUMIN/GLOBULIN RATIO 0.7 (1.1-1.5); ALKALINE PHOSPHATASE 53 IU/L (46-116); ANION GAP 7 (8-16); ASPARTATE AMINO TRANSFERASE 12 U/L (10-37); BILIRUBIN,TOTAL 0.5 MG/DL (0.1-1.0); BLOOD UREA NITROGEN 33 MG/DL (7-18); BUN/CREATININE RATIO 42.3 (10.0-20.0); CALCIUM 9.3 MG/DL (8.5-10.1); CHLORIDE 106 MMOL/L (99-107); CREATININE 0.78 MG/DL (0.60-1.10); GLUCOSE 125 MG/DL (70-104); POTASSIUM 4.1 MMOL/L (3.5-5.1); SODIUM 142 MMOL/L (135-145); TOTAL CARBON DIOXIDE 28.6 MMOL/L (24-32); TOTAL PROTEIN 6.8 G/DL (6.4-8.2); eCRCL 83 ML/MIN; eGFR > 90 ML/MIN
[2023-12-04 18:00] VITALS: BP_SYST 182; BP_DIAS 24; BP_DIAS 77; PULSE 82; RESP 24; TEMP 98; O2SAT 90
[2023-12-04 20:00] VITALS: RESP 20; O2SAT 90
[2023-12-05] VITALS (11 sets, daily range): BP systolic 114–147; BP diastolic 55–86; PULSE 56–93; RESP 14–24; TEMP 97.8–98.3; O2SAT 88–98
[2023-12-05] MEDS: methylPREDNISolone sod succ/PF 40mg inj. IV SCH (10:42)
[2023-12-06] VITALS (11 sets, daily range): BP systolic 117–142; BP diastolic 67–72; PULSE 61–76; RESP 14–20; TEMP 97–97.6; O2SAT 89–98
[2023-12-06 06:54] LABS: BASOPHILS % (AUTO) 0.1 % (0-1); EOSINOPHILS # (AUTO) 0.1 X10'3 (0-0.9); EOSINOPHILS % (AUTO) 0.8 % (0-6); HEMATOCRIT 44.8 % (42.0-52.0); HEMOGLOBIN 14.7 g/dl (14.0-17.9); LYMPHOCYTES # (AUTO) 1.6 X10'3 (1.1-4.8); LYMPHOCYTES % (AUTO) 11.7 % (21-51); MEAN CORPUSCULAR HEMOGLOBIN 29.1 PG (27.0-31.0); MEAN CORPUSCULAR HGB CONC 32.8 g/dL (33.0-36.5); MEAN CORPUSCULAR VOLUME 88.7 FL (78-98); MEAN PLATELET VOLUME 9.3 FL (7.4-10.4); MONOCYTES # (AUTO) 1.3 X10'3 (0-0.9); MONOCYTES % (AUTO) 9.2 % (2-12); NEUTROPHILS # (AUTO) 10.7 X10'3 (1.8-7.7); NEUTROPHILS % (AUTO) 78.2 % (42-75); PLATELET COUNT 193 X10'3 (140-440); RED BLOOD COUNT 5.05 X10'6 (4.70-6.10); RED CELL DISTRIBUTION WIDTH 16.2 % (11.5-14.5); WHITE BLOOD COUNT 13.7 X10'3 (4.5-11.0)
[2023-12-06 07:29] LABS: ALANINE AMINOTRANSFERASE 34 U/L (12-78); ALBUMIN 2.5 G/DL (3.4-5.0); ALBUMIN/GLOBULIN RATIO 0.7 (1.1-1.5); ALKALINE PHOSPHATASE 49 IU/L (46-116); ANION GAP 8 (8-16); ASPARTATE AMINO TRANSFERASE 14 U/L (10-37); BILIRUBIN,TOTAL 0.4 MG/DL (0.1-1.0); BLOOD UREA NITROGEN 28 MG/DL (7-18); BUN/CREATININE RATIO 44.4 (10.0-20.0); CALCIUM 9.3 MG/DL (8.5-10.1); CHLORIDE 107 MMOL/L (99-107); CREATININE 0.63 MG/DL (0.60-1.10); GLUCOSE 85 MG/DL (70-104); POTASSIUM 3.9 MMOL/L (3.5-5.1); SODIUM 142 MMOL/L (135-145); TOTAL PROTEIN 6.3 G/DL (6.4-8.2); eCRCL 103 ML/MIN; eGFR > 90 ML/MIN
[2023-12-07] VITALS (11 sets, daily range): BP systolic 118–141; BP diastolic 48–73; PULSE 59–82; RESP 14–23; TEMP 97.3–98.5; O2SAT 90–94
[2023-12-08] VITALS (9 sets, daily range): BP systolic 103–149; BP diastolic 53–84; PULSE 56–86; RESP 14–22; TEMP 97.2–98.1; O2SAT 90–97
[2023-12-08 06:46] LABS: EOSINOPHILS # (AUTO) 0.3 X10'3 (0-0.9); LYMPHOCYTES # (AUTO) 1.5 X10'3 (1.1-4.8); MONOCYTES # (AUTO) 1.1 X10'3 (0-0.9); RED CELL DISTRIBUTION WIDTH 16.9 % (11.5-14.5)
[2023-12-08 06:49] LABS: BASOPHILS % (AUTO) 0.1 % (0-1); HEMATOCRIT 46.6 % (42.0-52.0); HEMOGLOBIN 15.1 g/dl (14.0-17.9); LYMPHOCYTES % (AUTO) 13.9 % (21-51); MEAN CORPUSCULAR HGB CONC 32.4 g/dL (33.0-36.5); MEAN CORPUSCULAR VOLUME 89.6 FL (78-98); MEAN PLATELET VOLUME 9.3 FL (7.4-10.4); MONOCYTES % (AUTO) 10.4 % (2-12); NEUTROPHILS % (AUTO) 72.6 % (42-75); PLATELET COUNT 174 X10'3 (140-440)
[2023-12-08 07:08] LABS: ALANINE AMINOTRANSFERASE 36 U/L (12-78); ALBUMIN 2.5 G/DL (3.4-5.0); ALBUMIN/GLOBULIN RATIO 0.7 (1.1-1.5); ALKALINE PHOSPHATASE 51 IU/L (46-116); ANION GAP 6 (8-16); ASPARTATE AMINO TRANSFERASE 21 U/L (10-37); BILIRUBIN,TOTAL 0.7 MG/DL (0.1-1.0); BLOOD UREA NITROGEN 31 MG/DL (7-18); BUN/CREATININE RATIO 41.3 (10.0-20.0); CALCIUM 9.4 MG/DL (8.5-10.1); CHLORIDE 109 MMOL/L (99-107); CREATININE 0.75 MG/DL (0.60-1.10); GLUCOSE 90 MG/DL (70-104); POTASSIUM 3.9 MMOL/L (3.5-5.1); SODIUM 143 MMOL/L (135-145); TOTAL CARBON DIOXIDE 28.4 MMOL/L (24-32); TOTAL PROTEIN 6.2 G/DL (6.4-8.2); eCRCL 87 ML/MIN; eGFR > 90 ML/MIN
[2023-12-08] MEDS: diatr meglu/diatrizoate 30ml oral sol.-(3 dose) bottle PO SCH (09:00)
[2023-12-08] MEDS ORDERED: iohexol 300mg/ml 100ml inj. ONE (12:44)
[2023-12-09] VITALS (11 sets, daily range): BP systolic 122–156; BP diastolic 41–73; PULSE 56–83; RESP 14–18; TEMP 96.1–97.9; O2SAT 88–92
[2023-12-10] VITALS (7 sets, daily range): BP systolic 125–144; BP diastolic 59–67; PULSE 52–72; RESP 16–22; TEMP 96.9–97.7; O2SAT 91–93
[2023-12-11] VITALS (14 sets, daily range): BP systolic 117–168; BP diastolic 66–94; PULSE 63–75; RESP 17–22; TEMP 97.1–98.2; O2SAT 90–96
[2023-12-12] VITALS (7 sets, daily range): PULSE 56–70; RESP 16–22; TEMP 97.1–97.3; O2SAT 90
[2023-12-12] MEDS: lactulose 20gm/30ml cup PO ONE (12:35)
[2023-12-12] MEDS: docusate sod 100mg capsule PO SCH (20:18)
[2023-12-13 07:00] VITALS: BP 129/64; PULSE 59; RESP 20; TEMP 97.8; O2SAT 90
[2023-12-13 07:55] VITALS: PULSE 65; RESP 18; O2SAT 91
[2023-12-13 08:03] VITALS: PULSE 72; RESP 18
[2023-12-13 22:00] VITALS: BP 131/59; PULSE 61; RESP 16; TEMP 97.9; O2SAT 90
[2023-12-13 23:36] VITALS: PULSE 57; RESP 18; O2SAT 91
[2023-12-13 23:43] VITALS: PULSE 54; RESP 18
[2023-12-14] VITALS (7 sets, daily range): PULSE 59–78; RESP 16–20; O2SAT 90–91
[2023-12-14] MEDS: risperiDONE 0.5mg tablet PO SCH (08:14)
[2023-12-15] VITALS (13 sets, daily range): BP systolic 109–114; BP diastolic 53–71; PULSE 58–89; RESP 16–20; TEMP 97.4–97.6; O2SAT 87–95
[2023-12-15] MEDS: nystatin 15 GM powder TP SCH (20:19)
[2023-12-15 23:13] LABS: BASOPHILS # (AUTO) 0.1 X10'3 (0-0.2); BASOPHILS % (AUTO) 1.2 % (0-1); EOSINOPHILS # (AUTO) 0.3 X10'3 (0-0.9); HEMATOCRIT 40.6 % (42.0-52.0); HEMOGLOBIN 13.4 g/dl (14.0-17.9); LYMPHOCYTES # (AUTO) 1.8 X10'3 (1.1-4.8); LYMPHOCYTES % (AUTO) 19.6 % (21-51); MEAN CORPUSCULAR HEMOGLOBIN 29.5 PG (27.0-31.0); MEAN CORPUSCULAR HGB CONC 33.1 g/dL (33.0-36.5); MEAN PLATELET VOLUME 8.3 FL (7.4-10.4); MONOCYTES # (AUTO) 0.9 X10'3 (0-0.9); MONOCYTES % (AUTO) 9.8 % (2-12); NEUTROPHILS # (AUTO) 5.9 X10'3 (1.8-7.7); NEUTROPHILS % (AUTO) 66.4 % (42-75); PLATELET COUNT 139 X10'3 (140-440); RED BLOOD COUNT 4.56 X10'6 (4.70-6.10); RED CELL DISTRIBUTION WIDTH 17.1 % (11.5-14.5)
[2023-12-15 23:30] LABS: ALANINE AMINOTRANSFERASE 31 U/L (12-78); ALBUMIN 2.1 G/DL (3.4-5.0); ALBUMIN/GLOBULIN RATIO 0.5 (1.1-1.5); ALKALINE PHOSPHATASE 49 IU/L (46-116); ANION GAP 2 (8-16); ASPARTATE AMINO TRANSFERASE 14 U/L (10-37); BILIRUBIN,TOTAL 0.3 MG/DL (0.1-1.0); BLOOD UREA NITROGEN 25 MG/DL (7-18); BUN/CREATININE RATIO 26.6 (10.0-20.0); CHLORIDE 105 MMOL/L (99-107); CREATININE 0.94 MG/DL (0.60-1.10); GLUCOSE 103 MG/DL (70-104); POTASSIUM 4.4 MMOL/L (3.5-5.1); SODIUM 139 MMOL/L (135-145); TOTAL CARBON DIOXIDE 32.3 MMOL/L (24-32); eCRCL 69 ML/MIN; eGFR 78 ML/MIN
[2023-12-16] VITALS (12 sets, daily range): BP systolic 126–142; BP diastolic 57–66; PULSE 57–72; RESP 16–20; TEMP 97.2–98.9; O2SAT 92–97
[2023-12-17] VITALS (12 sets, daily range): BP systolic 102–133; BP diastolic 45–68; PULSE 57–85; RESP 15–20; TEMP 97.3–98.4; O2SAT 90–96
[2023-12-18] VITALS (12 sets, daily range): BP systolic 118–133; BP diastolic 49–69; PULSE 58–72; RESP 13–18; TEMP 97.4–98.1; O2SAT 91–98
[2023-12-19] VITALS (9 sets, daily range): BP systolic 112–131; BP diastolic 50–62; PULSE 59–70; RESP 13–18; TEMP 97.8–98.9; O2SAT 90–99
[2023-12-19 11:47] LABS: BASOPHILS % (AUTO) 0.7 % (0-1); EOSINOPHILS # (AUTO) 0.2 X10'3 (0-0.9); EOSINOPHILS % (AUTO) 3.7 % (0-6); HEMATOCRIT 40.5 % (42.0-52.0); HEMOGLOBIN 13.2 g/dl (14.0-17.9); LYMPHOCYTES # (AUTO) 1.2 X10'3 (1.1-4.8); LYMPHOCYTES % (AUTO) 18.6 % (21-51); MEAN CORPUSCULAR HGB CONC 32.5 g/dL (33.0-36.5); MONOCYTES # (AUTO) 0.6 X10'3 (0-0.9); MONOCYTES % (AUTO) 9.3 % (2-12); NEUTROPHILS # (AUTO) 4.5 X10'3 (1.8-7.7); NEUTROPHILS % (AUTO) 67.7 % (42-75); PLATELET COUNT 173 X10'3 (140-440); RED BLOOD COUNT 4.55 X10'6 (4.70-6.10); RED CELL DISTRIBUTION WIDTH 17.1 % (11.5-14.5); WHITE BLOOD COUNT 6.7 X10'3 (4.5-11.0)
[2023-12-19 12:01] LABS: ALANINE AMINOTRANSFERASE 31 U/L (12-78); ALBUMIN 2.2 G/DL (3.4-5.0); ALBUMIN/GLOBULIN RATIO 0.6 (1.1-1.5); ALKALINE PHOSPHATASE 61 IU/L (46-116); ANION GAP 5 (8-16); ASPARTATE AMINO TRANSFERASE 15 U/L (10-37); BILIRUBIN,TOTAL 0.2 MG/DL (0.1-1.0); BLOOD UREA NITROGEN 20 MG/DL (7-18); BUN/CREATININE RATIO 26.7 (10.0-20.0); CHLORIDE 103 MMOL/L (99-107); CREATININE 0.75 MG/DL (0.60-1.10); GLUCOSE 124 MG/DL (70-104); POTASSIUM 3.9 MMOL/L (3.5-5.1); SODIUM 138 MMOL/L (135-145); TOTAL CARBON DIOXIDE 30.3 MMOL/L (24-32); TOTAL PROTEIN 6.2 G/DL (6.4-8.2); eCRCL 87 ML/MIN; eGFR > 90 ML/MIN
[2023-12-19] MEDS: polyethylene glycol 3350 17gm powd pack PO ONE (20:01)
[2023-12-20] VITALS (12 sets, daily range): BP systolic 109–121; BP diastolic 48–76; PULSE 58–84; RESP 16–18; TEMP 97.1–97.8; O2SAT 90–94
[2023-12-20] MEDS: mag hydrox/Alum hydrox/simeth 30ml oral suspension PO PRN (20:41)
[2023-12-21] VITALS (10 sets, daily range): BP systolic 98; BP diastolic 43; PULSE 56–81; RESP 16–20; TEMP 97.1; O2SAT 88–96
[2023-12-22 07:23] VITALS: PULSE 57; RESP 16; O2SAT 90
[2023-12-22 07:29] VITALS: PULSE 57; RESP 17
[2023-12-22 10:15] LABS: BASOPHILS % (AUTO) 0.5 % (0-1); EOSINOPHILS # (AUTO) 0.3 X10'3 (0-0.9); EOSINOPHILS % (AUTO) 3.4 % (0-6); HEMOGLOBIN 14.1 g/dl (14.0-17.9); LYMPHOCYTES # (AUTO) 1.3 X10'3 (1.1-4.8); LYMPHOCYTES % (AUTO) 14.9 % (21-51); MEAN CORPUSCULAR HEMOGLOBIN 29.4 PG (27.0-31.0); MEAN CORPUSCULAR HGB CONC 32.8 g/dL (33.0-36.5); MEAN CORPUSCULAR VOLUME 89.8 FL (78-98); MEAN PLATELET VOLUME 7.8 FL (7.4-10.4); MONOCYTES # (AUTO) 0.7 X10'3 (0-0.9); MONOCYTES % (AUTO) 8.7 % (2-12); NEUTROPHILS # (AUTO) 6.1 X10'3 (1.8-7.7); NEUTROPHILS % (AUTO) 72.5 % (42-75); PLATELET COUNT 222 X10'3 (140-440); RED BLOOD COUNT 4.79 X10'6 (4.70-6.10); WHITE BLOOD COUNT 8.4 X10'3 (4.5-11.0)
[2023-12-22 10:23] LABS: ALBUMIN 2.4 G/DL (3.4-5.0); ANION GAP 7 (8-16); BLOOD UREA NITROGEN 15 MG/DL (7-18); BUN/CREATININE RATIO 22.7 (10.0-20.0); CALCIUM 8.6 MG/DL (8.5-10.1); CHLORIDE 103 MMOL/L (99-107); CREATININE 0.66 MG/DL (0.60-1.10); GLUCOSE 119 MG/DL (70-104); POTASSIUM 3.9 MMOL/L (3.5-5.1); SODIUM 139 MMOL/L (135-145); TOTAL CARBON DIOXIDE 29.5 MMOL/L (24-32); eCRCL 98 ML/MIN; eGFR > 90 ML/MIN
[2023-12-22 16:18] VITALS: PULSE 69; RESP 16; O2SAT 89
[2023-12-22 16:25] VITALS: PULSE 71; RESP 16
[2023-12-23] VITALS (9 sets, daily range): BP systolic 121; BP diastolic 56; PULSE 59–89; RESP 14–20; TEMP 97.7–98.3; O2SAT 90–96
[2023-12-23] MEDS: ibuprofen tablet 400 MG TABLET PO ONE (12:22)
[2023-12-23] MEDS: bacitracin/polymyxin B 15 GM ointment TP SCH (21:23)
[2023-12-24] VITALS (8 sets, daily range): BP systolic 110–131; BP diastolic 56–60; PULSE 57–65; RESP 14–16; TEMP 97.7; O2SAT 90–91
[2023-12-25] VITALS (8 sets, daily range): BP systolic 121–125; BP diastolic 56–67; PULSE 57–63; RESP 15–18; TEMP 97.4–97.8; O2SAT 90–93
[2023-12-26] VITALS (9 sets, daily range): BP systolic 114–118; BP diastolic 61–69; PULSE 60–72; RESP 15–20; TEMP 97.4–97.9; O2SAT 90–93
[2023-12-26 08:15] LABS: BASOPHILS # (AUTO) 0.1 X10'3 (0-0.2); EOSINOPHILS # (AUTO) 0.3 X10'3 (0-0.9); EOSINOPHILS % (AUTO) 3.8 % (0-6); HEMATOCRIT 42.8 % (42.0-52.0); LYMPHOCYTES # (AUTO) 1.5 X10'3 (1.1-4.8); LYMPHOCYTES % (AUTO) 18.6 % (21-51); MEAN CORPUSCULAR HEMOGLOBIN 29.3 PG (27.0-31.0); MEAN CORPUSCULAR HGB CONC 32.7 g/dL (33.0-36.5); MEAN CORPUSCULAR VOLUME 89.7 FL (78-98); MEAN PLATELET VOLUME 7.7 FL (7.4-10.4); MONOCYTES # (AUTO) 0.8 X10'3 (0-0.9); MONOCYTES % (AUTO) 9.9 % (2-12); NEUTROPHILS # (AUTO) 5.2 X10'3 (1.8-7.7); NEUTROPHILS % (AUTO) 66.7 % (42-75); PLATELET COUNT 271 X10'3 (140-440); RED BLOOD COUNT 4.77 X10'6 (4.70-6.10); RED CELL DISTRIBUTION WIDTH 17.4 % (11.5-14.5); WHITE BLOOD COUNT 7.8 X10'3 (4.5-11.0)
[2023-12-26 08:30] LABS: ALBUMIN 2.3 G/DL (3.4-5.0); ANION GAP 6 (8-16); BLOOD UREA NITROGEN 11 MG/DL (7-18); BUN/CREATININE RATIO 16.4 (10.0-20.0); CALCIUM 8.7 MG/DL (8.5-10.1); CHLORIDE 104 MMOL/L (99-107); CREATININE 0.67 MG/DL (0.60-1.10); GLUCOSE 98 MG/DL (70-104); POTASSIUM 4.4 MMOL/L (3.5-5.1); SODIUM 140 MMOL/L (135-145); TOTAL CARBON DIOXIDE 29.7 MMOL/L (24-32); eCRCL 97 ML/MIN; eGFR > 90 ML/MIN
[2023-12-27 03:37] LABS: BILIRUBIN,URINE NEGATIVE (Neg); CLARITY,URINE CLEAR (Clear); COLOR,URINE YELLOW (Yellow); GLUCOSE, URINE NEGATIVE (Neg); KETONES,URINE NEGATIVE (Neg); LEUKOCYTE ESTERASE ,URINE NEGATIVE (Neg); NITRITES, URINE NEGATIVE (Neg); OCCULT BLOOD,URINE TRACE-INTACT (Neg); PROTEIN,URINE NEGATIVE (Neg); UROBILINOGEN,URINE 0.2 E.U/dL (0.2-1.0)
[2023-12-27 03:45] LABS: UA COLLECTION TYPE FOLEY CATH
[2023-12-27 03:55] LABS: WBC,URINE 0-4 /HPF (0-4)
[2023-12-27 03:56] LABS: BACTERIA,URINE NONE SEEN /HPF (Neg); MUCUS STRANDS FEW /LPF (Neg); SQUAMOUS EPITHELIAL CELL,UR FEW /LPF (FEW)
[2023-12-27 08:15] VITALS: PULSE 62; RESP 15; O2SAT 90
[2023-12-27 08:25] VITALS: PULSE 64; RESP 15
[2023-12-27] MEDS: sennosides 8.6mg tablet PO SCH (11:10)
[2023-12-27] MEDS: polyethylene glycol 3350 17gm powd pack PO SCH (11:20)
[2023-12-27 15:32] VITALS: PULSE 63; RESP 15; O2SAT 91
[2023-12-27 15:42] VITALS: PULSE 66; RESP 15
[2023-12-28] VITALS (8 sets, daily range): BP systolic 105–139; BP diastolic 50–76; PULSE 55–88; RESP 14–20; TEMP 96.2–98.6; O2SAT 88–94
[2023-12-29 07:53] VITALS: PULSE 62; RESP 18; O2SAT 90
[2023-12-29 07:58] VITALS: PULSE 61; RESP 18
[2023-12-29 08:00] VITALS: RESP 18; O2SAT 95
[2023-12-29 08:14] LABS: BASOPHILS # (AUTO) 0.1 X10'3 (0-0.2); BASOPHILS % (AUTO) 1.2 % (0-1); EOSINOPHILS # (AUTO) 0.2 X10'3 (0-0.9); EOSINOPHILS % (AUTO) 1.8 % (0-6); HEMATOCRIT 44.8 % (42.0-52.0); HEMOGLOBIN 14.4 g/dl (14.0-17.9); LYMPHOCYTES # (AUTO) 1.4 X10'3 (1.1-4.8); LYMPHOCYTES % (AUTO) 15.1 % (21-51); MEAN CORPUSCULAR HEMOGLOBIN 28.7 PG (27.0-31.0); MEAN CORPUSCULAR HGB CONC 32.1 g/dL (33.0-36.5); MEAN CORPUSCULAR VOLUME 89.4 FL (78-98); MEAN PLATELET VOLUME 7.6 FL (7.4-10.4); MONOCYTES # (AUTO) 0.9 X10'3 (0-0.9); MONOCYTES % (AUTO) 9.2 % (2-12); NEUTROPHILS # (AUTO) 6.9 X10'3 (1.8-7.7); NEUTROPHILS % (AUTO) 72.7 % (42-75); PLATELET COUNT 291 X10'3 (140-440); RED BLOOD COUNT 5.01 X10'6 (4.70-6.10); RED CELL DISTRIBUTION WIDTH 17.3 % (11.5-14.5); WHITE BLOOD COUNT 9.6 X10'3 (4.5-11.0)
[2023-12-29 08:19] LABS: ALBUMIN 2.4 G/DL (3.4-5.0); ANION GAP 7 (8-16); BLOOD UREA NITROGEN 15 MG/DL (7-18); BUN/CREATININE RATIO 19.7 (10.0-20.0); CALCIUM 9.3 MG/DL (8.5-10.1); CHLORIDE 104 MMOL/L (99-107); CREATININE 0.76 MG/DL (0.60-1.10); GLUCOSE 97 MG/DL (70-104); POTASSIUM 4.3 MMOL/L (3.5-5.1); SODIUM 139 MMOL/L (135-145); TOTAL CARBON DIOXIDE 28.3 MMOL/L (24-32); eCRCL 85 ML/MIN; eGFR > 90 ML/MIN
[2023-12-29 15:44] VITALS: PULSE 59; RESP 18; O2SAT 88
[2023-12-29 15:49] VITALS: PULSE 58; RESP 18
[2023-12-29 18:00] VITALS: BP 127/72; PULSE 95; RESP 18; TEMP 98.5; O2SAT 91
[2023-12-30] VITALS (9 sets, daily range): BP systolic 102–106; BP diastolic 49–56; PULSE 55–79; RESP 14–18; TEMP 96.8–97.9; O2SAT 88–93
[2023-12-30] MEDS: acetaminophen 325mg tablet PO PRN (16:07)
[2023-12-30] MEDS: bisacodyl 10mg suppository rectal RC STA (22:12)
[2023-12-31] VITALS (9 sets, daily range): BP systolic 108–115; BP diastolic 45–67; PULSE 54–79; RESP 14–20; TEMP 97.6–97.9; O2SAT 88–94
[2024-01-01] VITALS (7 sets, daily range): BP systolic 115–128; BP diastolic 56; PULSE 59–92; RESP 14–19; TEMP 97.6–97.7; O2SAT 88–92
[2024-01-02] VITALS (8 sets, daily range): BP systolic 108–110; BP diastolic 51–56; PULSE 56–71; RESP 14–19; TEMP 97.7–98.2; O2SAT 91–92
[2024-01-02 16:01] LABS: BASOPHILS # (AUTO) 0.1 X10'3 (0-0.2); BASOPHILS % (AUTO) 1.1 % (0-1); EOSINOPHILS # (AUTO) 0.2 X10'3 (0-0.9); EOSINOPHILS % (AUTO) 1.9 % (0-6); HEMATOCRIT 42.8 % (42.0-52.0); LYMPHOCYTES # (AUTO) 1.8 X10'3 (1.1-4.8); LYMPHOCYTES % (AUTO) 15.7 % (21-51); MEAN CORPUSCULAR HEMOGLOBIN 29.2 PG (27.0-31.0); MEAN CORPUSCULAR HGB CONC 32.6 g/dL (33.0-36.5); MEAN CORPUSCULAR VOLUME 89.7 FL (78-98); MEAN PLATELET VOLUME 7.9 FL (7.4-10.4); MONOCYTES # (AUTO) 1.1 X10'3 (0-0.9); MONOCYTES % (AUTO) 9.9 % (2-12); NEUTROPHILS # (AUTO) 8.1 X10'3 (1.8-7.7); NEUTROPHILS % (AUTO) 71.4 % (42-75); PLATELET COUNT 258 X10'3 (140-440); RED BLOOD COUNT 4.77 X10'6 (4.70-6.10); RED CELL DISTRIBUTION WIDTH 17.6 % (11.5-14.5); WHITE BLOOD COUNT 11.3 X10'3 (4.5-11.0)
[2024-01-02 16:18] LABS: ALBUMIN 2.4 G/DL (3.4-5.0); ANION GAP 3 (8-16); BLOOD UREA NITROGEN 16 MG/DL (7-18); BUN/CREATININE RATIO 20.8 (10.0-20.0); CALCIUM 8.9 MG/DL (8.5-10.1); CHLORIDE 104 MMOL/L (99-107); CREATININE 0.77 MG/DL (0.60-1.10); GLUCOSE 108 MG/DL (70-104); POTASSIUM 4.2 MMOL/L (3.5-5.1); SODIUM 138 MMOL/L (135-145); TOTAL CARBON DIOXIDE 31.3 MMOL/L (24-32); eCRCL 84 ML/MIN; eGFR > 90 ML/MIN
[2024-01-02 16:23] LABS: PLATELET ESTIMATE NORMAL; TOTAL CELLS COUNTED 100
[2024-01-02 16:24] LABS: ANISOCYTOSIS 1+
[2024-01-03] VITALS (12 sets, daily range): BP systolic 114–123; BP diastolic 52–54; PULSE 52–72; RESP 16–20; TEMP 96.5–98.4; O2SAT 88–97
[2024-01-03 09:03] LABS: BASOPHILS # (AUTO) 0.1 X10'3 (0-0.2); BASOPHILS % (AUTO) 0.9 % (0-1); EOSINOPHILS # (AUTO) 0.1 X10'3 (0-0.9); EOSINOPHILS % (AUTO) 1.3 % (0-6); HEMATOCRIT 42.8 % (42.0-52.0); HEMOGLOBIN 14.2 g/dl (14.0-17.9); LYMPHOCYTES # (AUTO) 1.8 X10'3 (1.1-4.8); LYMPHOCYTES % (AUTO) 15.6 % (21-51); MEAN CORPUSCULAR HEMOGLOBIN 29.8 PG (27.0-31.0); MEAN CORPUSCULAR HGB CONC 33.2 g/dL (33.0-36.5); MEAN CORPUSCULAR VOLUME 89.9 FL (78-98); MEAN PLATELET VOLUME 8.3 FL (7.4-10.4); MONOCYTES # (AUTO) 1.1 X10'3 (0-0.9); MONOCYTES % (AUTO) 9.9 % (2-12); NEUTROPHILS # (AUTO) 8.3 X10'3 (1.8-7.7); NEUTROPHILS % (AUTO) 72.3 % (42-75); PLATELET COUNT 254 X10'3 (140-440); RED BLOOD COUNT 4.76 X10'6 (4.70-6.10); RED CELL DISTRIBUTION WIDTH 17.5 % (11.5-14.5); WHITE BLOOD COUNT 11.4 X10'3 (4.5-11.0)
[2024-01-04] VITALS (8 sets, daily range): BP systolic 110–133; BP diastolic 35–67; PULSE 16–93; RESP 14–19; TEMP 97.3–97.6; O2SAT 89–94
[2024-01-04 06:18] LABS: BASOPHILS # (AUTO) 0.1 X10'3 (0-0.2); BASOPHILS % (AUTO) 1.1 % (0-1); EOSINOPHILS # (AUTO) 0.2 X10'3 (0-0.9); HEMATOCRIT 42.7 % (42.0-52.0); LYMPHOCYTES # (AUTO) 1.8 X10'3 (1.1-4.8); LYMPHOCYTES % (AUTO) 16.5 % (21-51); MEAN CORPUSCULAR HEMOGLOBIN 29.5 PG (27.0-31.0); MEAN CORPUSCULAR HGB CONC 32.8 g/dL (33.0-36.5); MEAN PLATELET VOLUME 8.2 FL (7.4-10.4); MONOCYTES # (AUTO) 1.1 X10'3 (0-0.9); MONOCYTES % (AUTO) 9.4 % (2-12); PLATELET COUNT 232 X10'3 (140-440); RED BLOOD COUNT 4.74 X10'6 (4.70-6.10); RED CELL DISTRIBUTION WIDTH 17.3 % (11.5-14.5); WHITE BLOOD COUNT 11.2 X10'3 (4.5-11.0)
[2024-01-04 07:10] LABS: PLATELET ESTIMATE NORMAL; TOTAL CELLS COUNTED 100
[2024-01-04 07:11] LABS: ANISOCYTOSIS 1+; ELLIPTOCYTES FEW
[2024-01-04 07:12] LABS: LARGE PLATELETS FEW
[2024-01-05] VITALS (13 sets, daily range): BP systolic 113–150; BP diastolic 52–63; PULSE 50–72; RESP 16–22; TEMP 97.6–98.1; O2SAT 90–95
[2024-01-05] MEDS: bisacodyl 10mg suppository rectal RC PRN (14:48)
[2024-01-05] MEDS: albuterol 2.5 MG/3 ML nebule NEB SCH (20:11)
[2024-01-06] VITALS (11 sets, daily range): BP systolic 98–111; BP diastolic 45–60; PULSE 55–65; RESP 17–20; TEMP 97.7–98; O2SAT 90–95
[2024-01-07] VITALS (9 sets, daily range): BP systolic 113–168; BP diastolic 40–69; PULSE 56–71; RESP 13–20; TEMP 97.3–98.1; O2SAT 90–100
[2024-01-07] MEDS: acetaminophen 325mg tablet PO PRN (09:59)
[2024-01-07 12:54] LABS: BASOPHILS # (AUTO) 0.1 X10'3 (0-0.2); BASOPHILS % (AUTO) 0.9 % (0-1); EOSINOPHILS # (AUTO) 0.2 X10'3 (0-0.9); EOSINOPHILS % (AUTO) 2.1 % (0-6); HEMATOCRIT 40.6 % (42.0-52.0); HEMOGLOBIN 13.4 g/dl (14.0-17.9); LYMPHOCYTES # (AUTO) 1.6 X10'3 (1.1-4.8); LYMPHOCYTES % (AUTO) 15.1 % (21-51); MEAN CORPUSCULAR HEMOGLOBIN 29.6 PG (27.0-31.0); MEAN CORPUSCULAR HGB CONC 32.9 g/dL (33.0-36.5); MEAN CORPUSCULAR VOLUME 89.9 FL (78-98); MEAN PLATELET VOLUME 8.3 FL (7.4-10.4); MONOCYTES # (AUTO) 1.1 X10'3 (0-0.9); MONOCYTES % (AUTO) 10.2 % (2-12); NEUTROPHILS # (AUTO) 7.5 X10'3 (1.8-7.7); NEUTROPHILS % (AUTO) 71.7 % (42-75); PLATELET COUNT 218 X10'3 (140-440); RED BLOOD COUNT 4.51 X10'6 (4.70-6.10); RED CELL DISTRIBUTION WIDTH 17.2 % (11.5-14.5); WHITE BLOOD COUNT 10.4 X10'3 (4.5-11.0)
[2024-01-07 12:55] LABS: ALBUMIN 2.4 G/DL (3.4-5.0); ANION GAP 5 (8-16); BLOOD UREA NITROGEN 19 MG/DL (7-18); BUN/CREATININE RATIO 30.2 (10.0-20.0); CALCIUM 8.8 MG/DL (8.5-10.1); CHLORIDE 101 MMOL/L (99-107); CREATININE 0.63 MG/DL (0.60-1.10); GLUCOSE 92 MG/DL (70-104); POTASSIUM 4.4 MMOL/L (3.5-5.1); SODIUM 137 MMOL/L (135-145); TOTAL CARBON DIOXIDE 30.7 MMOL/L (24-32); eCRCL 103 ML/MIN; eGFR > 90 ML/MIN
[2024-01-07 13:22] LABS: TOTAL CELLS COUNTED 100
[2024-01-07 13:23] LABS: ANISOCYTOSIS 1+; PLATELET ESTIMATE NORMAL
[2024-01-07 13:24] LABS: POIKILOCYTOSIS FEW
[2024-01-08] VITALS (11 sets, daily range): BP systolic 102–115; BP diastolic 46–55; PULSE 52–64; RESP 12–20; TEMP 96–98; O2SAT 88–92
[2024-01-09] VITALS (10 sets, daily range): BP systolic 112–120; BP diastolic 39–65; PULSE 55–66; RESP 14–20; TEMP 96.1–97.8; O2SAT 88–93
[2024-01-10] VITALS (11 sets, daily range): BP systolic 102–121; BP diastolic 46–65; PULSE 53–67; RESP 16–20; TEMP 97–98.5; O2SAT 90–93
[2024-01-11] VITALS (9 sets, daily range): BP systolic 105–141; BP diastolic 43–62; PULSE 58–69; RESP 16–22; TEMP 98–98.3; O2SAT 88–98
[2024-01-11 06:20] LABS: BASOPHILS # (AUTO) 0.1 X10'3 (0-0.2); BASOPHILS % (AUTO) 1.1 % (0-1); EOSINOPHILS # (AUTO) 0.4 X10'3 (0-0.9); EOSINOPHILS % (AUTO) 3.8 % (0-6); HEMATOCRIT 42.2 % (42.0-52.0); HEMOGLOBIN 13.8 g/dl (14.0-17.9); LYMPHOCYTES # (AUTO) 1.9 X10'3 (1.1-4.8); LYMPHOCYTES % (AUTO) 17.9 % (21-51); MEAN CORPUSCULAR HEMOGLOBIN 29.6 PG (27.0-31.0); MEAN CORPUSCULAR HGB CONC 32.7 g/dL (33.0-36.5); MEAN CORPUSCULAR VOLUME 90.4 FL (78-98); MEAN PLATELET VOLUME 8.5 FL (7.4-10.4); MONOCYTES % (AUTO) 9.7 % (2-12); NEUTROPHILS # (AUTO) 7.1 X10'3 (1.8-7.7); NEUTROPHILS % (AUTO) 67.5 % (42-75); PLATELET COUNT 200 X10'3 (140-440); RED BLOOD COUNT 4.66 X10'6 (4.70-6.10); RED CELL DISTRIBUTION WIDTH 17.5 % (11.5-14.5); WHITE BLOOD COUNT 10.5 X10'3 (4.5-11.0)
[2024-01-11 06:36] LABS: ALBUMIN 2.5 G/DL (3.4-5.0); ANION GAP 5 (8-16); BLOOD UREA NITROGEN 18 MG/DL (7-18); BUN/CREATININE RATIO 25.7 (10.0-20.0); CHLORIDE 103 MMOL/L (99-107); GLUCOSE 91 MG/DL (70-104); POTASSIUM 4.1 MMOL/L (3.5-5.1); SODIUM 138 MMOL/L (135-145); TOTAL CARBON DIOXIDE 29.7 MMOL/L (24-32); eCRCL 93 ML/MIN; eGFR > 90 ML/MIN
[2024-01-11 09:00] LABS: ANISOCYTOSIS 1+; PLATELET ESTIMATE NORMAL; TOTAL CELLS COUNTED 100
[2024-01-11 09:01] LABS: BURR CELLS FEW; ELLIPTOCYTES FEW
[2024-01-12] VITALS (11 sets, daily range): BP systolic 96–123; BP diastolic 41–69; PULSE 52–70; RESP 16–20; TEMP 79.9–97.9; O2SAT 87–93
[2024-01-13] VITALS (12 sets, daily range): BP systolic 101–133; BP diastolic 52–63; PULSE 58–63; RESP 16–22; TEMP 97.6–98.4; O2SAT 90–97
[2024-01-14] VITALS (11 sets, daily range): BP systolic 105–117; BP diastolic 49–59; PULSE 52–73; RESP 17–20; TEMP 96.9–98; O2SAT 90–98
[2024-01-14 06:39] LABS: BASOPHILS # (AUTO) 0.1 X10'3 (0-0.2); BASOPHILS % (AUTO) 0.6 % (0-1); EOSINOPHILS # (AUTO) 0.5 X10'3 (0-0.9); EOSINOPHILS % (AUTO) 4.6 % (0-6); HEMATOCRIT 40.6 % (42.0-52.0); HEMOGLOBIN 13.6 g/dl (14.0-17.9); LYMPHOCYTES # (AUTO) 1.8 X10'3 (1.1-4.8); LYMPHOCYTES % (AUTO) 15.4 % (21-51); MEAN CORPUSCULAR HEMOGLOBIN 30.1 PG (27.0-31.0); MEAN CORPUSCULAR HGB CONC 33.5 g/dL (33.0-36.5); MEAN CORPUSCULAR VOLUME 89.8 FL (78-98); MEAN PLATELET VOLUME 8.2 FL (7.4-10.4); MONOCYTES # (AUTO) 1.2 X10'3 (0-0.9); MONOCYTES % (AUTO) 10.1 % (2-12); NEUTROPHILS # (AUTO) 7.9 X10'3 (1.8-7.7); NEUTROPHILS % (AUTO) 69.3 % (42-75); PLATELET COUNT 196 X10'3 (140-440); RED BLOOD COUNT 4.52 X10'6 (4.70-6.10); RED CELL DISTRIBUTION WIDTH 17.4 % (11.5-14.5); WHITE BLOOD COUNT 11.5 X10'3 (4.5-11.0)
[2024-01-14 06:42] LABS: ALBUMIN 2.6 G/DL (3.4-5.0); ANION GAP 5 (8-16); BLOOD UREA NITROGEN 18 MG/DL (7-18); BUN/CREATININE RATIO 23.7 (10.0-20.0); CALCIUM 9.1 MG/DL (8.5-10.1); CHLORIDE 103 MMOL/L (99-107); CREATININE 0.76 MG/DL (0.60-1.10); GLUCOSE 106 MG/DL (70-104); SODIUM 138 MMOL/L (135-145); TOTAL CARBON DIOXIDE 29.8 MMOL/L (24-32); eCRCL 85 ML/MIN; eGFR > 90 ML/MIN
[2024-01-15] VITALS (12 sets, daily range): BP systolic 112–175; BP diastolic 50–78; PULSE 57–77; RESP 16–22; TEMP 97.4–98; O2SAT 88–98
[2024-01-16 06:00] VITALS: BP 104/52; PULSE 53; RESP 18; TEMP 96.8; O2SAT 92
[2024-01-16 08:13] VITALS: PULSE 56; RESP 18; O2SAT 90
[2024-01-16 08:21] VITALS: PULSE 62; RESP 18
[2024-01-16 10:00] VITALS: BP 115/71; PULSE 67; RESP 18; TEMP 97.6; O2SAT 91
[2024-01-16 18:00] VITALS: BP 105/47; PULSE 65; RESP 18; TEMP 98.1; O2SAT 92
[2024-01-16 22:00] VITALS: BP 113/50; PULSE 63; RESP 20; TEMP 98.3; O2SAT 92
[2024-01-17] VITALS (10 sets, daily range): BP systolic 104–136; BP diastolic 43–63; PULSE 56–76; RESP 16–24; TEMP 98–98.3; O2SAT 88–92
[2024-01-18] VITALS (11 sets, daily range): BP systolic 101–128; BP diastolic 51–56; PULSE 58–74; RESP 14–19; TEMP 97.1–97.9; O2SAT 88–97
[2024-01-19] VITALS (11 sets, daily range): BP systolic 115–121; BP diastolic 50–56; PULSE 53–66; RESP 16–20; TEMP 97–97.9; O2SAT 89–95
[2024-01-19 04:54] LABS: BASOPHILS # (AUTO) 0.1 X10'3 (0-0.2); BASOPHILS % (AUTO) 0.9 % (0-1); EOSINOPHILS # (AUTO) 0.6 X10'3 (0-0.9); EOSINOPHILS % (AUTO) 5.1 % (0-6); HEMATOCRIT 40.6 % (42.0-52.0); HEMOGLOBIN 13.4 g/dl (14.0-17.9); LYMPHOCYTES # (AUTO) 1.7 X10'3 (1.1-4.8); LYMPHOCYTES % (AUTO) 15.1 % (21-51); MEAN CORPUSCULAR HEMOGLOBIN 29.4 PG (27.0-31.0); MEAN CORPUSCULAR HGB CONC 32.9 g/dL (33.0-36.5); MEAN CORPUSCULAR VOLUME 89.4 FL (78-98); MEAN PLATELET VOLUME 7.7 FL (7.4-10.4); MONOCYTES # (AUTO) 1.2 X10'3 (0-0.9); MONOCYTES % (AUTO) 10.5 % (2-12); NEUTROPHILS # (AUTO) 7.5 X10'3 (1.8-7.7); NEUTROPHILS % (AUTO) 68.4 % (42-75); PLATELET COUNT 232 X10'3 (140-440); RED BLOOD COUNT 4.54 X10'6 (4.70-6.10); RED CELL DISTRIBUTION WIDTH 17.5 % (11.5-14.5)
[2024-01-19 05:10] LABS: ALBUMIN 2.6 G/DL (3.4-5.0); ANION GAP 6 (8-16); BLOOD UREA NITROGEN 18 MG/DL (7-18); BUN/CREATININE RATIO 24.7 (10.0-20.0); CALCIUM 9.2 MG/DL (8.5-10.1); CHLORIDE 101 MMOL/L (99-107); CREATININE 0.73 MG/DL (0.60-1.10); GLUCOSE 104 MG/DL (70-104); SODIUM 136 MMOL/L (135-145); TOTAL CARBON DIOXIDE 29.4 MMOL/L (24-32); eCRCL 89 ML/MIN; eGFR > 90 ML/MIN
[2024-01-19 05:16] LABS: ANISOCYTOSIS 1+; ELLIPTOCYTES FEW; PLATELET ESTIMATE NORMAL; TOTAL CELLS COUNTED 100
[2024-01-19 05:17] LABS: BURR CELLS FEW
[2024-01-20] VITALS (12 sets, daily range): BP systolic 117–130; BP diastolic 50–63; PULSE 55–65; RESP 16–20; TEMP 96.8–98.3; O2SAT 91–98
[2024-01-21] VITALS (12 sets, daily range): BP systolic 116–123; BP diastolic 43–56; PULSE 58–70; RESP 8–20; TEMP 97.1–98.6; O2SAT 88–91
[2024-01-22] VITALS (10 sets, daily range): BP systolic 108–117; BP diastolic 49–55; PULSE 58–64; RESP 12–24; TEMP 97.7–98.2; O2SAT 88–92
[2024-01-23] VITALS (10 sets, daily range): BP systolic 107–124; BP diastolic 48–62; PULSE 60–74; RESP 12–20; TEMP 97.4–98.8; O2SAT 89–96
[2024-01-24] VITALS (9 sets, daily range): BP systolic 100–115; BP diastolic 38–75; PULSE 5–75; RESP 14–18; TEMP 97–98.9; O2SAT 90–96
[2024-01-24 01:26] LABS: BILIRUBIN,URINE NEGATIVE (Neg); CLARITY,URINE CLOUDY (Clear); COLOR,URINE STRAW (Yellow); GLUCOSE, URINE NEGATIVE (Neg); KETONES,URINE NEGATIVE (Neg); LEUKOCYTE ESTERASE ,URINE LARGE (Neg); OCCULT BLOOD,URINE MODERATE (Neg); PROTEIN,URINE NEGATIVE (Neg); UROBILINOGEN,URINE 0.2 E.U/dL (0.2-1.0)
[2024-01-24 01:33] LABS: NITRITES, URINE NEGATIVE (Neg); UA COLLECTION TYPE FOLEY CATH
[2024-01-24 01:43] LABS: AMORPHOUS PHOSPHATES 1+; BACTERIA,URINE 1+ /HPF (Neg); SQUAMOUS EPITHELIAL CELL,UR FEW /LPF (FEW); TRIPLE PHOSPHATE CRYST 1+ /HPF (NEGATIVE)
[2024-01-24 09:56] LABS: BASOPHILS # (AUTO) 0.1 X10'3 (0-0.2); BASOPHILS % (AUTO) 0.6 % (0-1); EOSINOPHILS # (AUTO) 0.5 X10'3 (0-0.9); EOSINOPHILS % (AUTO) 4.5 % (0-6); HEMATOCRIT 42.4 % (42.0-52.0); HEMOGLOBIN 13.9 g/dl (14.0-17.9); LYMPHOCYTES # (AUTO) 1.4 X10'3 (1.1-4.8); LYMPHOCYTES % (AUTO) 12.6 % (21-51); MEAN CORPUSCULAR HEMOGLOBIN 29.5 PG (27.0-31.0); MEAN CORPUSCULAR HGB CONC 32.7 g/dL (33.0-36.5); MEAN CORPUSCULAR VOLUME 90.2 FL (78-98); MEAN PLATELET VOLUME 7.6 FL (7.4-10.4); MONOCYTES # (AUTO) 0.9 X10'3 (0-0.9); MONOCYTES % (AUTO) 8.2 % (2-12); NEUTROPHILS # (AUTO) 8.1 X10'3 (1.8-7.7); NEUTROPHILS % (AUTO) 74.1 % (42-75); PLATELET COUNT 273 X10'3 (140-440); RED BLOOD COUNT 4.71 X10'6 (4.70-6.10); WHITE BLOOD COUNT 10.9 X10'3 (4.5-11.0)
[2024-01-25] VITALS (10 sets, daily range): BP systolic 106–124; BP diastolic 44–63; PULSE 52–77; RESP 12–18; TEMP 97.6–98.6; O2SAT 87–93
[2024-01-26] VITALS (10 sets, daily range): BP systolic 107–125; BP diastolic 51–59; PULSE 51–62; RESP 18–20; TEMP 97.6–98.4; O2SAT 89–98
[2024-01-26 09:47] LABS: ALBUMIN 2.6 G/DL (3.4-5.0); ANION GAP 8 (8-16); BASOPHILS # (AUTO) 0.1 X10'3 (0-0.2); BASOPHILS % (AUTO) 0.8 % (0-1); BLOOD UREA NITROGEN 22 MG/DL (7-18); BUN/CREATININE RATIO 27.8 (10.0-20.0); CALCIUM 8.8 MG/DL (8.5-10.1); CHLORIDE 101 MMOL/L (99-107); CREATININE 0.79 MG/DL (0.60-1.10); EOSINOPHILS # (AUTO) 0.5 X10'3 (0-0.9); EOSINOPHILS % (AUTO) 5.1 % (0-6); GLUCOSE 110 MG/DL (70-104); HEMATOCRIT 40.4 % (42.0-52.0); HEMOGLOBIN 13.4 g/dl (14.0-17.9); LYMPHOCYTES # (AUTO) 1.6 X10'3 (1.1-4.8); LYMPHOCYTES % (AUTO) 15.4 % (21-51); MEAN CORPUSCULAR HEMOGLOBIN 30.1 PG (27.0-31.0); MEAN CORPUSCULAR HGB CONC 33.1 g/dL (33.0-36.5); MEAN CORPUSCULAR VOLUME 90.8 FL (78-98); MONOCYTES % (AUTO) 9.8 % (2-12); NEUTROPHILS # (AUTO) 7.1 X10'3 (1.8-7.7); NEUTROPHILS % (AUTO) 68.9 % (42-75); PLATELET COUNT 262 X10'3 (140-440); POTASSIUM 3.7 MMOL/L (3.5-5.1); RED BLOOD COUNT 4.45 X10'6 (4.70-6.10); RED CELL DISTRIBUTION WIDTH 17.1 % (11.5-14.5); SODIUM 137 MMOL/L (135-145); TOTAL CARBON DIOXIDE 27.7 MMOL/L (24-32); WHITE BLOOD COUNT 10.3 X10'3 (4.5-11.0); eCRCL 82 ML/MIN; eGFR > 90 ML/MIN
[2024-01-26 10:11] LABS: ANISOCYTOSIS 1+; PLATELET ESTIMATE NORMAL; TOTAL CELLS COUNTED 100
[2024-01-27] VITALS (9 sets, daily range): BP systolic 105–135; BP diastolic 44–51; PULSE 60–65; RESP 16–20; TEMP 97.6–97.9; O2SAT 91–93
[2024-01-28] VITALS (10 sets, daily range): BP systolic 113–117; BP diastolic 43–74; PULSE 50–70; RESP 16–24; TEMP 97.7–98; O2SAT 90–98
[2024-01-29] VITALS (9 sets, daily range): BP systolic 107–111; BP diastolic 48–53; PULSE 54–67; RESP 16–20; TEMP 96.7–97.7; O2SAT 91–92
[2024-01-30] VITALS (9 sets, daily range): BP systolic 110–127; BP diastolic 44–61; PULSE 52–68; RESP 12–18; TEMP 97.1–97.7; O2SAT 90–92
[2024-01-31] VITALS (9 sets, daily range): BP systolic 102–113; BP diastolic 54–57; PULSE 56–64; RESP 16–20; TEMP 96.8–98.2; O2SAT 88–93
[2024-02-01] VITALS (10 sets, daily range): BP systolic 109–146; BP diastolic 47–72; PULSE 58–66; RESP 16–18; TEMP 97.1–98.4; O2SAT 89–92
[2024-02-02] VITALS (9 sets, daily range): BP systolic 118; BP diastolic 49; PULSE 58–61; RESP 15–20; TEMP 97.3; O2SAT 88–93
[2024-02-02 04:56] LABS: BASOPHILS # (AUTO) 0.1 X10'3 (0-0.2); BASOPHILS % (AUTO) 0.9 % (0-1); EOSINOPHILS # (AUTO) 0.4 X10'3 (0-0.9); EOSINOPHILS % (AUTO) 4.3 % (0-6); HEMATOCRIT 39.7 % (42.0-52.0); HEMOGLOBIN 12.8 g/dl (14.0-17.9); LYMPHOCYTES # (AUTO) 1.7 X10'3 (1.1-4.8); LYMPHOCYTES % (AUTO) 17.1 % (21-51); MEAN CORPUSCULAR HEMOGLOBIN 29.3 PG (27.0-31.0); MEAN CORPUSCULAR HGB CONC 32.1 g/dL (33.0-36.5); MEAN CORPUSCULAR VOLUME 91.3 FL (78-98); MEAN PLATELET VOLUME 7.8 FL (7.4-10.4); MONOCYTES % (AUTO) 9.8 % (2-12); NEUTROPHILS # (AUTO) 6.8 X10'3 (1.8-7.7); NEUTROPHILS % (AUTO) 67.9 % (42-75); PLATELET COUNT 233 X10'3 (140-440); RED BLOOD COUNT 4.35 X10'6 (4.70-6.10); RED CELL DISTRIBUTION WIDTH 17.1 % (11.5-14.5)
[2024-02-02 05:04] LABS: ALBUMIN 2.5 G/DL (3.4-5.0); ANION GAP 6 (8-16); BLOOD UREA NITROGEN 28 MG/DL (7-18); CALCIUM 8.8 MG/DL (8.5-10.1); CHLORIDE 103 MMOL/L (99-107); GLUCOSE 92 MG/DL (70-104); POTASSIUM 4.1 MMOL/L (3.5-5.1); SODIUM 138 MMOL/L (135-145); TOTAL CARBON DIOXIDE 29.4 MMOL/L (24-32); eCRCL 93 ML/MIN; eGFR > 90 ML/MIN
[2024-02-02 05:24] LABS: TOTAL CELLS COUNTED 100
[2024-02-02 05:25] LABS: ANISOCYTOSIS 1+; PLATELET ESTIMATE NORMAL
[2024-02-02] MEDS: ibuprofen tablet 400 MG TABLET PO ONE (12:49)
[2024-02-02] MEDS: LIDOcaine 5% patch TP SCH (17:15)
[2024-02-03] VITALS (7 sets, daily range): BP systolic 114; BP diastolic 66; PULSE 60–108; RESP 15–18; TEMP 97.3; O2SAT 88–92
[2024-02-04] VITALS (9 sets, daily range): BP systolic 102–129; BP diastolic 46–74; PULSE 60–92; RESP 14–18; TEMP 97.3–98; O2SAT 90–97
[2024-02-04] MEDS: polyvinyl alcohol eye drops 15ML BOTTLE RIGHTEYE SCH (17:11)
[2024-02-05] VITALS (10 sets, daily range): BP systolic 111–123; BP diastolic 53–59; PULSE 56–88; RESP 12–18; TEMP 97.5–97.9; O2SAT 90–93
[2024-02-05] MEDS: mineral oil 133ml enema RC PRN (15:43)
[2024-02-06] VITALS (10 sets, daily range): BP systolic 105–143; BP diastolic 47–61; PULSE 58–69; RESP 13–17; TEMP 97.1–97.3; O2SAT 87–92
[2024-02-07] VITALS (9 sets, daily range): BP systolic 121; BP diastolic 53; PULSE 57–71; RESP 13–18; TEMP 98.3; O2SAT 88–94
[2024-02-08] VITALS (9 sets, daily range): BP systolic 120–130; BP diastolic 46–60; PULSE 60–70; RESP 18–19; TEMP 97.5–97.9; O2SAT 89–90
[2024-02-09] VITALS (7 sets, daily range): BP systolic 128–133; BP diastolic 58–62; PULSE 58–71; RESP 14–20; TEMP 97.3–98.1; O2SAT 88–90
[2024-02-09 07:45] LABS: ALBUMIN 2.7 G/DL (3.4-5.0); ANION GAP 5 (8-16); BLOOD UREA NITROGEN 30 MG/DL (7-18); BUN/CREATININE RATIO 44.1 (10.0-20.0); CALCIUM 9.2 MG/DL (8.5-10.1); CHLORIDE 101 MMOL/L (99-107); CREATININE 0.68 MG/DL (0.60-1.10); GLUCOSE 94 MG/DL (70-104); POTASSIUM 4.1 MMOL/L (3.5-5.1); SODIUM 137 MMOL/L (135-145); TOTAL CARBON DIOXIDE 31.5 MMOL/L (24-32); eCRCL 95 ML/MIN; eGFR > 90 ML/MIN
[2024-02-09 07:46] LABS: BASOPHILS # (AUTO) 0.1 X10'3 (0-0.2); BASOPHILS % (AUTO) 0.8 % (0-1); EOSINOPHILS # (AUTO) 0.4 X10'3 (0-0.9); EOSINOPHILS % (AUTO) 3.8 % (0-6); HEMATOCRIT 39.2 % (42.0-52.0); LYMPHOCYTES # (AUTO) 1.6 X10'3 (1.1-4.8); LYMPHOCYTES % (AUTO) 16.9 % (21-51); MEAN CORPUSCULAR HEMOGLOBIN 29.9 PG (27.0-31.0); MEAN CORPUSCULAR VOLUME 90.5 FL (78-98); MEAN PLATELET VOLUME 8.1 FL (7.4-10.4); MONOCYTES # (AUTO) 1.1 X10'3 (0-0.9); MONOCYTES % (AUTO) 11.7 % (2-12); NEUTROPHILS # (AUTO) 6.5 X10'3 (1.8-7.7); NEUTROPHILS % (AUTO) 66.8 % (42-75); PLATELET COUNT 213 X10'3 (140-440); RED BLOOD COUNT 4.34 X10'6 (4.70-6.10); RED CELL DISTRIBUTION WIDTH 16.8 % (11.5-14.5); WHITE BLOOD COUNT 9.7 X10'3 (4.5-11.0)
[2024-02-09 09:21] LABS: ANISOCYTOSIS 1+; BURR CELLS FEW; PLATELET ESTIMATE NORMAL; TOTAL CELLS COUNTED 100
[2024-02-09] MEDS ORDERED: lurasidone 20mg tablet PO SCH ×2 (17:01→17:12)
[2024-02-09] MEDS ORDERED: lurasidone 60mg tablet PO SCH ×2 (17:02→17:11)
[2024-02-09] MEDS: lurasidone 60mg tablet PO SCH (17:17)
[2024-02-09] MEDS: lurasidone 20mg tablet PO SCH (17:17)
[2024-02-10] VITALS (10 sets, daily range): BP systolic 126–149; BP diastolic 64–66; PULSE 55–70; RESP 16–18; TEMP 96.4–98.2; O2SAT 88–92
[2024-02-11] VITALS (10 sets, daily range): BP systolic 140–160; BP diastolic 60–68; PULSE 58–73; RESP 14–18; TEMP 97.5–97.8; O2SAT 88–92
[2024-02-11] MEDS: bisacodyl 10mg suppository rectal RC PRN (17:39)
[2024-02-12] VITALS (10 sets, daily range): BP systolic 106–144; BP diastolic 52–73; PULSE 56–68; RESP 14–20; TEMP 97.6–97.8; O2SAT 89–91
[2024-02-12] MEDS ORDERED: HYDROcodone/acetaminophen 5mg/325mg tablet PO PRN ×2 (10:15)
[2024-02-12] MEDS ORDERED: nystatin 15 GM powder TP SCH (13:00)
[2024-02-12] MEDS ORDERED: NYSTATIN 30 GM POWDER TP SCH (13:00)
[2024-02-12] MEDS: nystatin 15 GM powder TP SCH (13:15)
[2024-02-13] VITALS (9 sets, daily range): BP systolic 121–130; BP diastolic 57–82; PULSE 62–83; RESP 14–24; TEMP 96.4–97.7; O2SAT 87–90
[2024-02-14] VITALS (10 sets, daily range): BP systolic 128; BP diastolic 66–68; PULSE 54–73; RESP 18–24; TEMP 98–98.1; O2SAT 85–92
[2024-02-14] MEDS ORDERED: risperiDONE 0.5mg tablet PO SCH (20:00)
[2024-02-14] MEDS: docusate sod 100mg capsule PO SCH (21:37)
[2024-02-15] VITALS (9 sets, daily range): BP systolic 119–136; BP diastolic 54–56; PULSE 59–76; RESP 16–18; TEMP 98–98.5; O2SAT 87–91
[2024-02-15] MEDS: OLANZAPINE 5 MG TABLET PO SCH (20:21)
[2024-02-16] VITALS (9 sets, daily range): BP systolic 124; BP diastolic 70; PULSE 56–76; RESP 16–18; TEMP 97.1; O2SAT 88–94
[2024-02-16 04:22] LABS: BASOPHILS # (AUTO) 0.1 X10'3 (0-0.2); BASOPHILS % (AUTO) 0.8 % (0-1); EOSINOPHILS # (AUTO) 0.3 X10'3 (0-0.9); HEMATOCRIT 40.1 % (42.0-52.0); LYMPHOCYTES # (AUTO) 1.8 X10'3 (1.1-4.8); MEAN CORPUSCULAR HEMOGLOBIN 29.7 PG (27.0-31.0); MEAN CORPUSCULAR HGB CONC 32.5 g/dL (33.0-36.5); MEAN CORPUSCULAR VOLUME 91.4 FL (78-98); MEAN PLATELET VOLUME 7.9 FL (7.4-10.4); MONOCYTES # (AUTO) 1.1 X10'3 (0-0.9); MONOCYTES % (AUTO) 11.3 % (2-12); NEUTROPHILS # (AUTO) 6.3 X10'3 (1.8-7.7); NEUTROPHILS % (AUTO) 65.9 % (42-75); PLATELET COUNT 229 X10'3 (140-440); RED BLOOD COUNT 4.39 X10'6 (4.70-6.10); RED CELL DISTRIBUTION WIDTH 16.3 % (11.5-14.5); WHITE BLOOD COUNT 9.5 X10'3 (4.5-11.0)
[2024-02-16 04:33] LABS: ALBUMIN 2.6 G/DL (3.4-5.0); ANION GAP 3 (8-16); BLOOD UREA NITROGEN 24 MG/DL (7-18); BUN/CREATININE RATIO 32.9 (10.0-20.0); CALCIUM 9.2 MG/DL (8.5-10.1); CHLORIDE 103 MMOL/L (99-107); CREATININE 0.73 MG/DL (0.60-1.10); GLUCOSE 97 MG/DL (70-104); POTASSIUM 4.3 MMOL/L (3.5-5.1); SODIUM 138 MMOL/L (135-145); TOTAL CARBON DIOXIDE 32.5 MMOL/L (24-32); eCRCL 89 ML/MIN; eGFR > 90 ML/MIN
[2024-02-16] MEDS: HYDROcodone/acetaminophen 5mg/325mg tablet PO PRN (07:34)
[2024-02-16] MEDS: enoxaparin 40mg/0.4ml syringe SUBCUT SCH (21:02)
[2024-02-17] VITALS (10 sets, daily range): BP systolic 117–120; BP diastolic 57; PULSE 5–73; RESP 17–20; TEMP 97.4–97.8; O2SAT 88–92
[2024-02-17] MEDS: guaiFENesin ER 600mg tablet PO SCH (07:14)
[2024-02-18] VITALS (10 sets, daily range): BP systolic 105–122; BP diastolic 52–54; PULSE 55–69; RESP 16–20; TEMP 97.2–97.8; O2SAT 88–92
[2024-02-18] MEDS: gabapentin 400mg capsule PO SCH (20:44)
[2024-02-19] VITALS (9 sets, daily range): BP systolic 118; BP diastolic 76; PULSE 58–70; RESP 15–20; TEMP 97.9; O2SAT 88–96
[2024-02-19] MEDS: gabapentin 400mg capsule PO SCH (21:00)
[2024-02-20] VITALS (7 sets, daily range): BP systolic 102–119; BP diastolic 41–65; PULSE 62–84; RESP 16–20; TEMP 97.5–98.1; O2SAT 81–99
[2024-02-21] VITALS (10 sets, daily range): BP systolic 113–126; BP diastolic 57–59; PULSE 60–98; RESP 14–20; TEMP 97–98; O2SAT 89–95
[2024-02-22] VITALS (9 sets, daily range): BP systolic 98–106; BP diastolic 28–58; PULSE 53–70; RESP 16–18; TEMP 97.6; O2SAT 84–92
[2024-02-22] MEDS ORDERED: GABA-535 PO (10:12)
[2024-02-23 06:00] VITALS: BP 126/58; PULSE 68; RESP 18; TEMP 98.6; O2SAT 92
[2024-02-23 08:03] LABS: BASOPHILS # (AUTO) 0.1 X10'3 (0-0.2); BASOPHILS % (AUTO) 0.9 % (0-1); EOSINOPHILS # (AUTO) 0.5 X10'3 (0-0.9); EOSINOPHILS % (AUTO) 5.1 % (0-6); HEMATOCRIT 38.6 % (42.0-52.0); HEMOGLOBIN 12.6 g/dl (14.0-17.9); LYMPHOCYTES # (AUTO) 1.5 X10'3 (1.1-4.8); LYMPHOCYTES % (AUTO) 15.4 % (21-51); MEAN CORPUSCULAR HEMOGLOBIN 30.2 PG (27.0-31.0); MEAN CORPUSCULAR HGB CONC 32.7 g/dL (33.0-36.5); MEAN CORPUSCULAR VOLUME 92.3 FL (78-98); MEAN PLATELET VOLUME 8.2 FL (7.4-10.4); MONOCYTES # (AUTO) 1.1 X10'3 (0-0.9); MONOCYTES % (AUTO) 12.1 % (2-12); NEUTROPHILS # (AUTO) 6.3 X10'3 (1.8-7.7); NEUTROPHILS % (AUTO) 66.5 % (42-75); PLATELET COUNT 226 X10'3 (140-440); RED BLOOD COUNT 4.18 X10'6 (4.70-6.10); RED CELL DISTRIBUTION WIDTH 16.2 % (11.5-14.5); WHITE BLOOD COUNT 9.5 X10'3 (4.5-11.0)
[2024-02-23 08:18] LABS: ALBUMIN 2.4 G/DL (3.4-5.0); ANION GAP 6 (8-16); BLOOD UREA NITROGEN 29 MG/DL (7-18); BUN/CREATININE RATIO 37.7 (10.0-20.0); CALCIUM 8.6 MG/DL (8.5-10.1); CHLORIDE 104 MMOL/L (99-107); CREATININE 0.77 MG/DL (0.60-1.10); GLUCOSE 93 MG/DL (70-104); POTASSIUM 4.1 MMOL/L (3.5-5.1); SODIUM 140 MMOL/L (135-145); eCRCL 84 ML/MIN; eGFR > 90 ML/MIN
[2024-02-23 10:19] VITALS: PULSE 58; RESP 18; O2SAT 83
[2024-02-23 10:31] VITALS: PULSE 60; RESP 20
[2024-02-23 11:29] VITALS: RESP 18; O2SAT 92
== END 2024-02-23 14:22 | DRG 871 ==
LOC: ER 16:42 → ED HOLD 19:32 → UNDOADMIN 19:32 → ED HOLD 19:35 → SUR 3N 21:28 → PCU 3S 11-21 15:24 → ORTHO 4S 12-13 21:59 → SUR 3N 01-03 19:55
PROVIDERS: ADMIT Internal Medicine; ATTEND Internal Medicine
PROC: 5A0935A Assistance with Respiratory Ventilation, Less than 24 Consecutive Hours, High Flow/Velocity Cannula (ICD-10-PCS; principal; 2023-11-21)
PROC: 5A0935A Assistance with Respiratory Ventilation, Less than 24 Consecutive Hours, High Flow/Velocity Cannula (ICD-10-PCS; 2023-11-22)
PROC: 5A0935A Assistance with Respiratory Ventilation, Less than 24 Consecutive Hours, High Flow/Velocity Cannula (ICD-10-PCS; 2023-11-23)
PROC: 5A0935A Assistance with Respiratory Ventilation, Less than 24 Consecutive Hours, High Flow/Velocity Cannula (ICD-10-PCS; 2023-11-24)
PROC: 5A0935A Assistance with Respiratory Ventilation, Less than 24 Consecutive Hours, High Flow/Velocity Cannula (ICD-10-PCS; 2023-11-25)
PROC: 5A0935A Assistance with Respiratory Ventilation, Less than 24 Consecutive Hours, High Flow/Velocity Cannula (ICD-10-PCS; 2023-11-26)
PROC: 5A0935A Assistance with Respiratory Ventilation, Less than 24 Consecutive Hours, High Flow/Velocity Cannula (ICD-10-PCS; 2023-11-27)
DX: A41.9 Sepsis, unspecified organism (principal); G93.41 Metabolic encephalopathy; J96.01 Acute respiratory failure with hypoxia; J18.9 Pneumonia, unspecified organism; I50.33 Acute on chronic diastolic (congestive) heart failure; E66.2 Morbid (severe) obesity with alveolar hypoventilation; J44.0 Chronic obstructive pulmonary disease with (acute) lower respiratory infection; E87.4 Mixed disorder of acid-base balance; I11.0 Hypertensive heart disease with heart failure; E78.5 Hyperlipidemia, unspecified; I48.0 Paroxysmal atrial fibrillation; I27.20 Pulmonary hypertension, unspecified; N48.5 Ulcer of penis; M54.2 Cervicalgia; Z20.822 Contact with and (suspected) exposure to COVID-19; N20.0 Calculus of kidney; K59.00 Constipation, unspecified; F31.9 Bipolar disorder, unspecified; E78.00 Pure hypercholesterolemia, unspecified; I25.10 Atherosclerotic heart disease of native coronary artery without angina pectoris; E88.09 Other disorders of plasma-protein metabolism, not elsewhere classified; Z68.39 Body mass index [BMI] 39.0-39.9, adult; Z79.82 Long term (current) use of aspirin; Z79.899 Other long term (current) drug therapy; Z88.8 Allergy status to other drugs, medicaments and biological substances; I25.2 Old myocardial infarction
CPT/HCPCS: 36415; 36600; 70450; 71045; 71046; 71250; 71260; 73060; 74177; 76770; 80048; 80053; 80061; 80177; 81001; 81003; 82803; 82948; 83036; 83605; 83735; 83880; 84145; 84443; 84484; 85007; 85018; 85025; 85379; 85610; 85651; 85730; 87040; 87081; 87811; 90732; 92508; 92616; 93005; 93306; 94640; 94760; 96365; 96375; 97110; 97161; 97530; 97535; 99285; A4314; A4333; A4338; A4346; A4615; A4620; A5200; A6212; A6213; A6250; A6258; A6449; A6590; C1758; G0378; J0456; J0696; J1644; J1650; J1940; J2919; J3490; J7030; J7040; J7070; J7121; J7512; P9045; Q9963; Q9967